=== PATIENT | female | born 1965 | race Caucasian/White ===

== ENCOUNTER 2020-06-14 09:30 | Outpatient (REF) | payer OTHER, SELFPAY | END 2020-06-14 09:31 | disposition home or self-care (01) | LOC: HO.LNP 09:30 | PROVIDERS: Visit Provider Physician Assistant | DX: J01.90 Acute sinusitis, unspecified (principal); Z20.822 Contact with and (suspected) exposure to COVID-19 | CPT/HCPCS: U0003 ==

== ENCOUNTER 2020-11-21 12:10 | Outpatient (REF) | payer OTHER, SELFPAY ==
--- NOTE | ~2020-11-21 | XR_ITS ---
EXAMINATION: XR CHEST CLINICAL INFORMATION: Chest pain COMPARISON: Previous chest x-ray June 2017 TECHNIQUE: 2 views of the chest were obtained. FINDINGS: No significant abnormality is noted involving the heart, lungs, mediastinum, bony thorax or soft tissues. XR/XR chest 2V IMPRESSION: Unremarkable examination.
[2020-11-21 13:55] LABS: MANUAL DIFF FLAG NO
[2020-11-21 13:59] LABS: Basophils Percent Auto 0.6 % (0-2); Eosinophils Absolute Auto 0.1 X10*3/uL (0.0-0.4); Eosinophils Percent Auto 2.2 % (0-4); Hematocrit 44.1 % (37-47); Imm Gran Abs Auto 0.01 X10*3/uL (0.00-0.03); Imm Gran Pct Auto 0.2 % (0.0-0.4); Lymphocytes Absolute Auto 1.9 X10*3/uL (1.2-4.9); Lymphocytes Percent Auto 40.2 % (20-40); Mean Corpuscular Hemoglobin 30.2 pg (27.0-33.0); Mean Corpuscular Volume 88.9 fL (80-98); Mean Platelet Volume 10.3 fL (9.4-12.3); Monocytes Absolute Auto 0.4 X10*3/uL (0.1-1.2); Monocytes Percent Auto 9.3 % (2-11); Neutrophils Absolute Auto 2.2 X10*3/uL (2.0-8.3); Neutrophils Percent Auto 47.5 % (45-73); Platelet Count 215 X10*3/uL (160-400); Red Blood Count 4.96 X10*6/uL (4.20-5.50); Red Cell Distribution Width 12.7 % (11.0-16.0); White Blood Count 4.6 X10*3/uL (4.8-10.8)
[2020-11-21 14:16] LABS: D Dimer < 200 NG/ML
[2020-11-21 14:24] LABS: Anion Gap 12 (12-20); Blood Urea Nitrogen 14 mg/dL (9-16); Calcium 9.6 mg/dL (8.4-10.2); Carbon Dioxide 28 mmol/L (22-29); Chloride 107 mmol/L (96-108); Estimated Glomerular Filt Rate > 60; Glucose Random 106 mg/dL (60-115); Potassium 4.4 mmol/L (3.3-5.1); Sodium 143 mmol/L (135-145)
[2020-11-21 14:26] LABS: Troponin-I High Sensitivity < 3.5 ng/L (<3.5-17.0)
== END 2020-11-21 12:11 | disposition home or self-care (01) ==
LOC: HO.HMGCX 12:10
PROVIDERS: PCP Internal Medicine; Visit Provider Nurse Practitioner Family
DX: R07.9 Chest pain, unspecified (principal)
CPT/HCPCS: 36415; 71046; 80048; 84484; 85025; 85379

== ENCOUNTER 2020-12-19 08:06 | Outpatient (REF) | payer OTHER, SELFPAY ==
[2020-12-19 11:53] LABS: Cholesterol 230 mg/dL; Glucose Fasting 94 mg/dL (60-99); HDL Cholesterol 59 mg/dL; LDL Cholesterol Calculated 148 mg/dl; Triglycerides 115 mg/dL
[2020-12-19 11:55] LABS: TSH reflex Free T4 3.06 uIU/mL (0.32-4.0)
[2020-12-24 13:15] LABS: Vitamin D 25-OH, D2 <4 ng/mL; Vitamin D 25-OH, D3 34 ng/mL; Vitamin D 25-OH, Total 34 ng/mL (30-100)
== END 2020-12-19 08:07 | disposition home or self-care (01) ==
LOC: HO.HMGCLDS 08:06
PROVIDERS: PCP Internal Medicine; Visit Provider Internal Medicine
DX: E66.09 Other obesity due to excess calories (principal); F41.1 Generalized anxiety disorder; M54.12 Radiculopathy, cervical region
CPT/HCPCS: 36415; 80061; 82306; 82947; 84443

== ENCOUNTER 2021-05-06 18:41 | Outpatient (REF) | payer OTHER, SELFPAY ==
[2021-05-06 19:26] LABS: Influenza A PCR NEGATIVE (Negative); Influenza B PCR NEGATIVE (Negative); Resp Syncy Virus RNA Qual PCR NEGATIVE (Negative); SARS COV2 PCR INHOUSE NEGATIVE (Negative)
== END 2021-05-06 18:42 | disposition home or self-care (01) ==
LOC: HO.LNP 18:41
PROVIDERS: Visit Provider Physician Assistant
DX: J32.9 Chronic sinusitis, unspecified (principal); Z20.822 Contact with and (suspected) exposure to COVID-19
CPT/HCPCS: 0241U

== ENCOUNTER 2021-06-21 12:00 | Outpatient (REF) | payer OTHER, SELFPAY ==
[2021-06-21 12:48] LABS: Binax Now Covid-19 Ag Negative (Negative)
[2021-06-21 12:49] LABS: Binax Internal Control QC Valid
== END 2021-06-21 12:01 | disposition home or self-care (01) ==
LOC: HO.HMGCLDS 12:00
PROVIDERS: Visit Provider Nurse Practitioner Family
DX: Z13.89 Encounter for screening for other disorder (principal)

== ENCOUNTER 2023-09-10 15:17 | Outpatient (AMB) | payer OTHER, SELFPAY ==
[2023-09-10 15:22] VITALS: BP 138/80; PULSE 67; TEMP 36.6; O2SAT 96; BMI 30.8
--- NOTE | 2023-09-10 15:22 | AM.OFFWIN_ITS ---
Intake Vital Signs 09/10/23 15:22 Height 5 ft 6 in Weight 191 lb BMI 30.8 BP 138/80 Blood Pressure Location Lt brachial Position Sitting Pulse 67 Pulse Source Pulse Oximeter Temp 98 F Temp Source Oral Pulse Oximetry (%) 96 Oxygen Delivery Method Room Air Intake Visit Reasons: EP Sore throat, headache, cough Intake Note: Pt is here today for sore throat, headache and cough. Pt states symptoms started Thursday also mentioned chest feels heavy. Patient Tobacco Use Status: Never used Tobacco Allergies No Known Allergies [No Known Allergies*] Allergy (Verified 09/10/23 15:23) Do you need a note to return to daycare/school/sports/work: No HPI HPI Comments History of Present Illness Details The patient presents to urgent care for evaluation of cold symptoms. She has nasal congestion headache mild body aches and dry cough. She has some pain with respiration and coughing. Patient also reports tinnitus and that has been going on for an extended period of time. Patient denies fever chills nausea vomiting diarrhea [facility] Medical History (Updated 09/28/21 @ 14:48 by Jarod Kirk PA-C) Exposure to COVID-19 virus Family History Other Substance use disorder Social History Housing: House Patient Tobacco Use Status: Never used Tobacco Second Hand Smoke Exposure: Yes (as a child) Current occupational status: employed Review of Systems Card Denies rapid heart rate GI Denies dyspepsia and Denies heartburn Musc Denies arthralgias and Denies muscle cramps Neuro Denies focal weakness and Denies Other visual disturbances Physical Exam Vital Signs: Last Vital Signs Temp 98 F 09/10/23 15:22 Pulse 67 09/10/23 15:22 BP 138/80 09/10/23 15:22 Pulse Ox 96 09/10/23 15:22 Oxygen Delivery Method Room Air 09/10/23 15:22 BMI result Body Mass Index 30.8 Const General: healthy appearing and no acute distress HEENT Mouth: Normal oral and palatal mucosa present Resp Effort & Inspection: normal respiratory effort and able to speak in complete sentences Auscultation: clear to auscultation bilaterally Cardio Rate: regular rate Rhythm: regular rhythm Results AMB Rapid Strep AMB Rapid Strep Negative Last Edit by Ed Cameron MA on 09/10/23 15:32 Results Reviewed Results Reviewed: Laboratory Last Values Strep Scn Rapid Clinic Negative 09/10/23 15:31 Assessment & Plan Assessment & Plan (1) URI (upper respiratory infection): Code(s): J06.9 - Acute upper respiratory infection, unspecified (2) Tinnitus: Code(s): H93.19 - Tinnitus, unspecified ear Plan URi-symptoms consistent with viral. TMs clear, no cerumen impaction. No identifiable cause for tinnitus seen today. Patient was referred to ENT for this reason. Recommend OTC uri medications in the meantime Coding Level of Care Code Est Pt Level 3 (50503) Diagnoses URI (upper respiratory infection) J06.9 Tinnitus H93.19
== END 2023-09-10 15:50 | disposition home or self-care (01) ==
PROVIDERS: PCP Internal Medicine; Visit Provider Emergency Medicine
DX: J06.9 Acute upper respiratory infection, unspecified (principal); H93.19 Tinnitus, unspecified ear
CPT/HCPCS: 99213

== ENCOUNTER 2024-01-07 12:59 | Outpatient (AMB) | payer OTHER, SELFPAY ==
--- NOTE | 2024-01-07 13:01 | MHC.OFFWIV ---
Intake Vital Signs 01/07/24 13:08 01/07/24 13:14 Height 5 ft 6 in Weight 187 lb BMI 30.2 BP 208/118 H 208/106 H Blood Pressure Location Rt brachial Lt brachial Position Sitting Sitting Pulse 63 Pulse Source Pulse Oximeter Temp 97.3 F Temp Source Oral Pulse Oximetry (%) 98 Oxygen Delivery Method Room Air Intake Visit Reasons: Ep headache, cough, congestion Intake Note: pt c/ Patient Tobacco Use Status: Never used Tobacco Allergies No Known Allergies [No Known Allergies*] Allergy (Verified 09/10/23 15:23) HPI HPI Comments History of Present Illness Details 58 y/o female patient who presents to the walk in clinic with c/o URI symptoms for few days now. Reports headaches, and sinus headaches. She used to have elevated BP readings in the past, but did not require medications then. She has been taking NSAIDs and Nyquil frequently for Cold symptoms. Denies CP, SOB, Palpitations or vision changes. Denies fevers, chills, nausea or vomiting. [facility] Medical History (Updated 09/28/21 @ 14:48 by Jarod Kirk PA-C) Exposure to COVID-19 virus Family History Other Substance use disorder Social History Housing: House Patient Tobacco Use Status: Never used Tobacco Second Hand Smoke Exposure: Yes (as a child) Current occupational status: employed Review of Systems Const All systems reviewed & are unremarkable except as noted in HPI and below Physical Exam Vital Signs: Last Vital Signs Temp 97.3 F 01/07/24 13:08 Pulse 63 01/07/24 13:08 BP 208/106 H 01/07/24 13:14 Pulse Ox 98 01/07/24 13:08 Oxygen Delivery Method Room Air 01/07/24 13:08 BMI result Body Mass Index 30.2 Const General: cooperative, no acute distress and lethargic Orientation/consciousness: patient oriented x3 and lethargic HEENT Head: Yes normocephalic Ears: external ears normal and TM abnormal bulging bilateral and with fluid behind the TM bilateral; not erythematous General nose exam: Normal external nose present and Abnormal mucous membranes and turbinates present erythematous Face and sinus: Yes sinuses nontender Mouth: moist mucous membranes Throat: Yes posterior oropharynx normal Resp Effort & Inspection: normal respiratory effort and able to speak in complete sentences Auscultation: clear to auscultation bilaterally, no crackles, no rales, no rhonchi and no wheezes Cardio Heart sounds: S1 normal heart sound present and S2 normal heart sound present Neuro General: patient oriented x3, gait normal and moves all extremities Psych Speech and movement: Normal speech and movement present Assessment & Plan Assessment & Plan (1) URI (upper respiratory infection): Code(s): J06.9 - Acute upper respiratory infection, unspecified Qualifiers: URI type: unspecified viral URI Qualified Code(s): J06.9 - Acute upper respiratory infection, unspecified Plan: Probably Viral Advised to go to Emergency room for further evaluation. (2) Elevated blood pressure reading: Code(s): R03.0 - Elevated blood-pressure reading, without diagnosis of hypertension Plan: Ordered ECG, Normal Sinus ?Right Bundle Branch block Advised to go to ED for further evaluation. Coding Level of Care Code Est Pt Level 3 (12230) Diagnoses Viral upper respiratory tract infection J06.9 URI type: unspecified viral URI Elevated blood pressure reading R03.0 Time Spent (min) 15
[2024-01-07 13:08] VITALS: BP 208/118; PULSE 63; TEMP 36.3; O2SAT 98; BMI 30.2
[2024-01-07 13:14] VITALS: BP 208/106
== END 2024-01-07 14:01 | disposition home or self-care (01) ==
PROVIDERS: PCP Internal Medicine; Visit Provider Nurse Practitioner Family
DX: J06.9 Acute upper respiratory infection, unspecified (principal); R03.0 Elevated blood-pressure reading, without diagnosis of hypertension
CPT/HCPCS: 99213

== ENCOUNTER 2024-01-07 13:52 | Emergency (ER) | payer OTHER, SELFPAY ==
--- NOTE | ~2024-01-07 | XR_ITS ---
EXAMINATION: XR CHEST CLINICAL INFORMATION: Cough and congestion COMPARISON: Chest x-ray November 21, 2020 TECHNIQUE: PA and lateral views of the chest were obtained. FINDINGS: The cardiac and mediastinal contours is normal. There is no pulmonary vascular congestion. There is no acute airspace disease or pleural effusion. Orthopedic plate and screw in lower cervical spine XR/XR chest 2V IMPRESSION: Normal chest. Electronically signed by: Rell Cruz MD 01/07/2024 03:28 PM EDT
--- NOTE | ~2024-01-07 | CT_ITS ---
EXAMINATION: CT HEAD WITHOUT CONTRAST CLINICAL INFORMATION: Headache and elevated blood pressure. COMPARISON: None. TECHNIQUE: Contiguous axial imaging was performed from the skullbase to vertex without intravenous administration of contrast. This CT examination was performed using dose optimization techniques as appropriate, variously including the following: *Automated exposure control *Adjustment of mA and/or kV according to patient size (this includes techniques or standardized protocols for targeted exams where dose is matched to indication/reason for exam; i.e. extremities or head) *Use of iterative reconstruction technique DLP: 612 mGy-cm. FINDINGS: There is no evidence of acute intracranial hemorrhage or territorial infarction. No abnormal mass effect or midline shift is seen. [place] to white matter differentiation is well preserved. No extra-axial fluid collections are identified. The ventricles are normal in size. There is no abnormal attenuation within the brain parenchyma. The osseous structures and soft tissues are normal. The mastoid air cells and visualized portions of the paranasal sinuses are well aerated. CT/CT head/brain wo IV con IMPRESSION: No acute intracranial pathology. Electronically signed by: Sherif Palomares MD 01/07/2024 04:51 PM EDT
[2024-01-07 14:24] VITALS: BP 220/85; PULSE 66; RESP 18; TEMP 36.7; O2SAT 97; BMI 30.3
--- NOTE | 2024-01-07 14:28 | ECG_ITS ---
Test Reason : HBP Blood Pressure : / mmHG Vent. Rate : 056 BPM Atrial Rate : 056 BPM P-R Int : 156 ms QRS Dur : 090 ms QT Int : 420 ms P-R-T Axes : 048 015 009 degrees QTc Int : 405 ms Sinus bradycardia Anterior infarct , age undetermined Abnormal ECG No previous ECGs available Referred By: Kristin Finnegan Electronically Signed By:GARY BROWN
--- NOTE | 2024-01-07 14:29 | ED.GENADULT ---
HPI - General Adult General Chief complaint: Upper Respiratory Symptoms Stated complaint: high bp Time Seen by Provider: 01/07/24 15:19 History of Present Illness ED Provider: Pollo KEVIN narrative: The patient is a 58-year-old woman who is generally in fairly good health. She does not have a history of hypertension. The patient says that approximately 2-1/2 weeks ago she thought she had a respiratory infection or something like the flu that she managed at home. Her symptoms have been quite persistent however and last week she developed a gradual onset headache that has become quite persistent as well and quite annoying. She has continued to have a slight dry cough and also a sore throat. No fevers. She was frustrated at the duration of her symptoms and went to an urgent care center today. She thoought perhaps she might have strep throat. At the urgent care center she had a blood pressure of about 220/100. The urgent care center was concerned about the combination of a complaint of headache and the hypertension and they recommended she come to the emergency department. No definite history of fevers. No vomiting. The patient has a history of headaches and has seen an ENT specialist about her headaches. She feels that this headache is not entirely identical to her previous headaches. The patient has never been a smoker. Neither of her parents had heart disease. She has 2 older brothers. The older of these 2 has not had any heart disease. The younger of the 2 older brothers has had 2 heart attacks. Related Data Home Medications ?Medication ?Instructions ?Recorded ?Confirmed No Known Home Meds 09/28/21 09/28/21 Allergies Allergy/AdvReac Type Severity Reaction Status Date / Time No Known Allergies Allergy Verified 01/07/24 14:26 [No Known Allergies*] Review of Systems Review of Systems: Yes all other systems are reviewed and are negative [facility] Past Medical History Medical History (Updated 01/07/24 @ 17:27 by Trent Abad MD) Exposure to COVID-19 virus Family History Family History Other Substance use disorder Social History Social History Housing: House Patient Tobacco Use Status: Never used Tobacco Second Hand Smoke Exposure: Yes (as a child) Advance Directives: Yes Advance Directives on File: Yes Advance Directives Date on File: 01/07/24 Current occupational status: employed Physical Exam ED Vital Signs: Vital Signs - 24 hr 01/07/24 14:24 Temperature 98.1 F Pulse Rate 66 Respiratory Rate 18 Blood Pressure 220/85 H Pulse Oximetry 97 Oxygen Delivery Method Room Air BMI result Body Mass Index 30.3 Const Other: The patient is awake, alert, pleasant, cooperative. She does not appear in acute distress. She looks as if she is ordinarily healthy. HENMT Other: Face is symmetrical. Mucous membranes moist. Slight erythema of the posterior pharynx. Eyes Other: Pupils are round equal, conjunctivae are clear, extraocular movements intact. Neck Other: No cervical adenopathy. Moving her neck easily. Neck: Yes no meningeal signs and Yes supple Resp Effort & Inspection: normal respiratory effort Auscultation: clear to auscultation bilaterally Cardio Rate: regular rate Rhythm: regular rhythm Heart sounds: S1 normal heart sound present and S2 normal heart sound present GI Other: Abdomen is soft and nontender Skin Other: Skin is dry and unremarkable Neuro Other: The patient is awake and alert, pleasant and cooperative. She has a nontoxic demeanor. She is oriented and appropriate. Cranial nerves 2-12 are intact. She moves her extremities normally and appropriately seems grossly neurologically intact General: no meningeal signs Extrem Other: No calf swelling or tenderness. No peripheral edema. No asymmetry. Course Course Course Narrative: This is a Rapid Medical Examination (RME) performed by Zack Finnegan PA-C in triage. Full HPI, ROS, assessment and treatment plan per primary provider in the Main ED. 58 yo female here from for eval of elevated BP. Reports recent headache, dry cough, congestion and fatigue. When to urgent care for evaluation and was noted to have BP in the 200s over 80s with abnormal EKG. Sent here for further evaluation. Admits her granddaughter was recently ill. Denies chest pain, shortness of breath, vision changes, dizziness. + well-appearing. Exam nonfocal. PERRLA. No noted papilledema. rrr. lungs clear. Plan: labs, ekg, ct head, viral serology Medications Administered Discontinued Medications Generic Name Dose Route Start Last Admin Trade Name Freq PRN Reason Stop Dose Admin Diphenhydramine HCl 25 mg 01/07/24 15:50 01/07/24 16:13 Diphenhydramine Hcl 50 Mg/Ml Vial IVPUSH 01/07/24 15:51 25 mg ONCE ONE Administration Sodium Chloride 1,000 mls @ 999 mls/hr 01/07/24 16:00 01/07/24 16:08 Ns IV 01/07/24 17:00 999 mls/hr .Q1H1M DAVIS Administration Ketorolac Tromethamine 10 mg 01/07/24 15:50 01/07/24 16:13 Ketorolac Tromethamine 15 Mg/Ml Vial IVPUSH 01/07/24 15:51 10 mg ONCE ONE Administration Metoclopramide HCl 10 mg 01/07/24 15:50 01/07/24 16:13 Metoclopramide Hcl 10 Mg/2 Ml Vial IVPUSH 01/07/24 15:51 10 mg ONCE ONE Administration Medical Decision Making Medical Decision Making [facility] Narrative: The patient is a 58-year-old woman who is generally quite healthy. She is a nonsmoker. She has been feeling unwell for about 2-1/2 weeks. Her symptoms have included a headache that has developed over the last week. It was not a thunderclap headache. She has not had fevers. She has a supple neck. She went to an urgent care today to make sure she did not have strep throat. However she was found to have significantly elevated blood pressure readings and was sent to the emergency room. Here her blood pressure was fairly high at 220/85. She has a nontoxic appearance and a supple neck. Investigations were ordered at triage that included a head CT. This is negative. Troponin is normal. EKG shows no acute ischemic changes. She has no chest pain. No other anginal symptoms. CBC shows a normal white count and differential. A viral swab is negative and a rapid strep is negative. The patient was treated for her headache with ketorolac, ibuprofen, and diphenhydramine and IV fluids. Her headache improved. Her blood pressure improved but did not entirely normalize. Although her blood pressure is still somewhat high I think she is appropriate for discharge to follow up with the regular doctor for further evaluation of her blood pressure. Lab Data 01/07/24 14:44 01/07/24 14:44 Labs: Lab Results 01/07/24 01/07/24 Range/Units 14:44 17:06 WBC 6.1 (4.8-10.8) X10*3/uL RBC 5.06 (4.20-5.50) X10*6/uL Hgb 16.1 H (12.0-16.0) g/dl Hct 44.8 (37.0-47.0) % MCV 88.5 (80.0-98.0) fL MCH 31.8 (27.0-33.0) pg MCHC 35.9 H (31.0-35.0) g/dl RDW 13.2 (11.0-16.0) % Plt Count 172 (160-400) X10*3/uL MPV 10.0 (9.4-12.3) fL Immature Gran % (Auto) 0.3 (0.0-0.4) % Neut % (Auto) 51.1 (45-73) % Lymph % (Auto) 37.7 (20-40) % [place] % (Auto) 7.7 (2-11) % Eos % (Auto) 2.4 (0-4) % Baso % (Auto) 0.8 (0-2) % Lymph # (Auto) 2.3 (1.2-4.9) X10*3/uL [place] # (Auto) 0.5 (0.1-1.2) X10*3/uL Eos # (Auto) 0.2 (0.0-0.4) X10*3/uL Baso # (Auto) 0.1 (0.0-0.2) X10*3/uL Abs Immat Gran (auto) 0.02 (0.00-0.03) X10*3/uL Absolute Neuts (auto) 3.1 (2.0-8.3) x10*3/uL Absolute Nucleated RBC 0.000 (0.0-0.012) X10*3/uL Nucleated RBC % (auto) 0.0 (0.0-0.2) /100WBC Sodium 142 (135-145) mmol/L Potassium 3.8 (3.3-5.1) mmol/L Chloride 104 (96-108) mmol/L Carbon Dioxide 28 (22-29) mmol/L Anion Gap 14 (12-20) BUN 13 (9-16) mg/dL Creatinine 0.88 (0.5-1.4) mg/dL Estim Creat Clear Calc 77.5 Estimated GFR > 60 Random Glucose 92 (60-115) mg/dL Calcium 10.0 (8.4-10.2) mg/dL Magnesium 2.3 (1.6-2.6) mg/dL Total Bilirubin 0.6 (0.0-1.0) mg/dL AST 45 H (5-31) U/L ALT 53 H (0-31) U/L Alkaline Phosphatase 86 (39-117) U/L Troponin I High Sens 3.4 (<3.5-17.0) ng/L Total Protein 7.8 (6.5-8.0) g/dL Albumin 4.2 (3.5-5.0) g/dL Influenza Type A (PCR) NEGATIVE (Negative) Influenza Type B (PCR) NEGATIVE (Negative) RSV RNA Qual (PCR) NEGATIVE (Negative) SARS-CoV-2 RNA (RT-PCR) NEGATIVE (Negative) S. pyogenes GrpA KLAUS Negative (Negative) Independent Interpretation I performed an independent interpretation of an: EKG Interpretation: EKG at 14:35 shows sinus bradycardia at 56 beats per minute. No acute ischemic changes. Discharge Plan Discharge Clinical Impression: Headache, Elevated blood pressure reading Patient Disposition: Home, Self-Care Additional Instructions: Your testing in the emergency room today is not revealing any dangerous process. Please rest and take it easy when you get home tonight. Please try to increase your fluid intake generally. You may use ibuprofen and/or acetaminophen as needed for ongoing headaches. Please call your regular doctor's office in the morning to set up a prompt follow up appointment for recheck of your blood pressure. Return to the emergency room if you feel significantly worse. Prescriptions: No Action No Known Home Meds Referrals: Bert Hernandez MD [Primary Care Provider] - (Headache, elevated blood pressures) Print Language: Mongolian
[2024-01-07 14:49] LABS: MANUAL DIFF FLAG NO
[2024-01-07 14:51] LABS: Basophils Absolute Auto 0.1 X10*3/uL (0.0-0.2); Basophils Percent Auto 0.8 % (0-2); Eosinophils Absolute Auto 0.2 X10*3/uL (0.0-0.4); Eosinophils Percent Auto 2.4 % (0-4); Hematocrit 44.8 % (37.0-47.0); Hemoglobin 16.1 g/dl (12.0-16.0); Imm Gran Abs Auto 0.02 X10*3/uL (0.00-0.03); Imm Gran Pct Auto 0.3 % (0.0-0.4); Lymphocytes Absolute Auto 2.3 X10*3/uL (1.2-4.9); Lymphocytes Percent Auto 37.7 % (20-40); Mean Corpuscular HGB Conc 35.9 g/dl (31.0-35.0); Mean Corpuscular Hemoglobin 31.8 pg (27.0-33.0); Mean Corpuscular Volume 88.5 fL (80.0-98.0); Monocytes Absolute Auto 0.5 X10*3/uL (0.1-1.2); Monocytes Percent Auto 7.7 % (2-11); Neutrophils Absolute Auto 3.1 x10*3/uL (2.0-8.3); Neutrophils Percent Auto 51.1 % (45-73); Platelet Count 172 X10*3/uL (160-400); Red Blood Count 5.06 X10*6/uL (4.20-5.50); Red Cell Distribution Width 13.2 % (11.0-16.0); White Blood Count 6.1 X10*3/uL (4.8-10.8)
[2024-01-07 15:04] LABS: Alanine Aminotransferase 53 U/L (0-31); Albumin Level 4.2 g/dL (3.5-5.0); Alkaline Phosphatase 86 U/L (39-117); Anion Gap 14 (12-20); Aspartate Amino Transferase 45 U/L (5-31); Bilirubin Total 0.6 mg/dL (0.0-1.0); Blood Urea Nitrogen 13 mg/dL (9-16); Carbon Dioxide 28 mmol/L (22-29); Chloride 104 mmol/L (96-108); Creatinine Clr Calc Pharmacy 77.5; Estimated Glomerular Filt Rate > 60; Glucose Random 92 mg/dL (60-115); Magnesium 2.3 mg/dL (1.6-2.6); Potassium 3.8 mmol/L (3.3-5.1); Sodium 142 mmol/L (135-145); Total Protein 7.8 g/dL (6.5-8.0)
[2024-01-07 15:11] LABS: Troponin-I High Sensitivity 3.4 ng/L (<3.5-17.0)
[2024-01-07 15:30] LABS: Influenza A PCR NEGATIVE (Negative); Influenza B PCR NEGATIVE (Negative); Resp Syncy Virus RNA Qual PCR NEGATIVE (Negative); SARS COV2 PCR INHOUSE NEGATIVE (Negative)
[2024-01-07] MEDS: 0.9 % Sodium Chloride 1,000 ML 999 ML IV (16:08)
[2024-01-07] MEDS: diphenhydrAMINE HCL 50 MG/ML VIAL 25 MG IVPUSH (16:13)
[2024-01-07] MEDS: Metoclopramide HCl 10 MG/2 ML VIAL IVPUSH (16:13)
[2024-01-07] MEDS: Ketorolac Tromethamine 15 MG/ML VIAL 10 MG IVPUSH (16:13)
[2024-01-07 17:17] LABS: IDNOW Serial# 08D9AD1C; Strep A Nucleic Acid Negative (Negative)
[2024-01-07 17:30] VITALS: O2SAT 99
[2024-01-07 17:38] VITALS: BP 164/80; PULSE 64; RESP 16; O2SAT 99
[2024-01-07 17:55] VITALS: BP 164/80; PULSE 64; RESP 16; TEMP 36.7; O2SAT 99
== END 2024-01-07 17:56 | disposition home or self-care (01) ==
PROVIDERS: Physician Assistant Medical; Emergency Provider Emergency Medicine; PCP Internal Medicine
DX: R51.9 Headache, unspecified (principal); R03.0 Elevated blood-pressure reading, without diagnosis of hypertension; Z03.818 Encounter for observation for suspected exposure to other biological agents ruled out; R05.9 Cough, unspecified; J02.9 Acute pharyngitis, unspecified
CPT/HCPCS: 0241U; 36415; 70450; 71046; 80053; 83735; 84484; 85025; 87651; 93005; 96374; 96375; 99284; 99285; J1200; J1885; J2765

== ENCOUNTER 2024-01-22 14:27 | Outpatient (AMB) | payer OTHER, SELFPAY ==
[2024-01-22 14:29] VITALS: BP 146/78; PULSE 66; O2SAT 98; BMI 30.2
--- NOTE | 2024-01-22 14:29 | MHC.PC.OV ---
Vital Signs 01/22/24 14:29 Height 5 ft 6 in Weight 187 lb 6 oz BMI 30.2 BP 146/78 H Blood Pressure Location Rt brachial Position Sitting Pulse 66 Pulse Source Pulse Oximeter Pulse Oximetry (%) 98 Oxygen Delivery Method Room Air Intake Visit Reasons: Annual-PE Allergies No Known Allergies [No Known Allergies*] Allergy (Verified 01/22/24 14:30) Medication List - Last Reconciled 01/22/24 by Bert Hernandez MD No Known Home Meds Tobacco use date assessed: 01/22/24 Dental Screening Dental Screen Date: 01/22/24 Did you have a dental visit in the last 12 months?: Yes Did you have a dental problem in the last 6 months where you did not have access to dental care?: No Was dental information given to patient?: Patient has dentist HPI Annual-PE HPI Details Patient is a 58-year-old female came in today after almost 3 years She was in emergency room in December because of high blood pressure and headaches Had workup done and then was discharged Her blood pressure is 146/78 Patient continued to have headaches every day and ringing in the ears I am starting her on atenolol 25 mg once a day She was advised to get blood pressure monitor and start logging the blood pressure from home Lab order placed to be done fasting She will call her OBGYN for Pap smear and mammogram order and breast exam is through them as per patient No syncope was at age 51 and it was normal as per patient History of herniated disc in the neck with surgery 15 years ago, now having numbness tingling and weakness in her left hand I am ordering EMG nerve conduction study for her She will return in 3 weeks for follow-up appointment [facility] Medical History Exposure to COVID-19 virus Family History Other Substance use disorder Social History Housing: House Patient Tobacco Use Status: Never used Tobacco e-Cigarette/Vaping Use: Never Used Second Hand Smoke Exposure: Yes (as a child) Advance Directives Date on File: 01/07/24 service: No Current occupational status: employed Cognitive needs: No Hearing needs: No Vision needs: No Questionnaire PHQ-9 Over the last 2 weeks, how often have you been bothered by any of the following problems? 1. Little interest or pleasure in doing things: not at all 2. Feeling down, depressed, or hopeless: not at all 3. Trouble falling or staying asleep, or sleeping too much: not at all 4. Feeling tired or having little energy: not at all 5. Poor appetite or overeating: not at all 6. Feeling bad about yourself - or that you are a failure or have let yourself or your family down: not at all 7. Trouble concentrating on things, such as reading the newspaper or watching television: not at all 8. Moving or speaking so slowly that other people could have noticed. Or the opposite - being so fidgety or restless that you have been moving around a lot more than usual: not at all 9. Thoughts that you would be better off or of hurting yourself in some way: not at all Total score: 0 Depression Screening Interpretation: Negative Depression Screening Done: Yes [id number] - PHQ-9 Billing: Yes Source: Developed by Drs. Jass Arango, Natalya Barone, Oswaldo Augustin and colleagues, with an educational lorena from [employer]. Thrive Questionnaire I am a: Patient What is your living situation today?: I have a steady place to live Within the past 12 months, did the food you bought not last and you didn't have the money to get more?: Never true Within the past 12 months, did you worry whether your food would run out before you got money to buy more?: Never true Do you have trouble paying for medicines?: No Do you have trouble getting transportation to medical appointments?: No Do you have trouble paying your heating and electricity bill?: No Do you have trouble taking care of your child, family member or friend?: No Do you have trouble with day-to-day activities such as bathing, preparing meals, shopping, managing finances, etc.?: No Are you currently unemployed and looking for a job?: No Are you interested in more education?: No Please select the resources that you would like help with: None Currently or been in a relationship where the following occur: No concerns reported THRIVE Score: 0 AUDIT C Alcohol Use Questionnaire (AUDIT-C) 1. How often do you have a drink containing alcohol?: Monthly or less 2. How many drinks containing alcohol do you have on a typical day when you are drinking?: 1 or 2 3. How often do you have six or more drinks on one occasion?: Never Total Score: 1 LENA-7 AMB Questionnaire LENA-7 Feeling nervous, anxious, or on edge: 0 = Not at all Not being able to stop or control worryin = Not at all Worrying too much about different things: 0 = Not at all Trouble relaxin = Not at all Being so restless that it is hard to sit still: 0 = Not at all Becoming easily annoyed or irritable: 0 = Not at all Feeling afraid as if something awful might happen: 0 = Not at all Total LENA-7 score (0-4 normal; 5-9 mild; 10-14 moderate; 15-21 severe): 0 Source: Developed by Drs. Jass Arango, Natalya Barone, Oswaldo Augustin and colleagues, with an educational lorena from [employer]. Review of Systems Const Denies chills and Denies fever(s) Eyes Denies blurry vision ENT Denies nasal discharge, Denies nasal obstruction, Denies odynophagia and Denies sinus pain Card Denies chest pain at rest and Denies chest pain with activity Resp Denies cough and Denies hemoptysis GI Denies diarrhea, Denies odynophagia, Denies vomiting and Denies hematemesis Reports as per HPI Musc Denies abnormal gait Skin/Breast Reports as per HPI Neuro Denies Neuro-related abnormal movements, Denies Abnormal speech present and Denies abnormal gait Psych Denies mood swings and Denies paranoia Endo Reports as per HPI Gume/Lymph Reports as per HPI Aller/Immun Reports as per HPI Physical exam (Primary Care) Vital Signs: Last Vital Signs Pulse 66 01/22/24 14:29 BP 146/78 H 01/22/24 14:29 Pulse Ox 98 01/22/24 14:29 Oxygen Delivery Method Room Air 01/22/24 14:29 BMI result Body Mass Index 30.2 Tobacco/Smoking Status: Tobacco use Status Tobacco use date assessed 01/22/24 01/22/24 14:36 Patient Tobacco Use Status Never used Tobacco 01/22/24 14:32 e-Cigarette/Vaping Use Never Used 01/22/24 14:36 PHQ-9: PHQ-9 Score PHQ-9: Total score 0 01/22/24 14:32 Depression Screening Interpretation: Negative Currently or been in a relationship where the following occur: No concerns reported Const General: cooperative, comfortable and no acute distress Orientation/consciousness: patient oriented x3 HENMT Head: Yes normocephalic and Yes atraumatic Eyes General: appearance normal, both eyes and all related structures Pupils: Equal, round and reactive pupils present EOM: EOMs intact bilaterally Neck Neck: Yes supple and No lymphadenopathy Thyroid: Thyroid normal Lymphatic: no lymphadenopathy noted Resp Effort & Inspection: normal respiratory effort and able to speak in complete sentences Auscultation: clear to auscultation bilaterally Cardio Heart sounds: S1 normal heart sound present and S2 normal heart sound present GI Palpation (GI): Soft to palpation and nontender Auscultation: normal bowel sounds General: Yes no CVA tenderness Back/Spine/Pelvis Back: no CVA tenderness Skin General skin exam: elasticity normal and turgor normal Neuro General: patient oriented x3 and gait normal Cranial nerves: Yes Equal, round and reactive pupils present Speech: No Abnormal speech present Coordination: tandem gait normal and Romberg test negative Extrem General: Yes normal exam except as noted and No edema Assessment and Plan Assessment & Plan (1) Encounter for general adult medical examination with abnormal findings: Code(s): Z00.01 - Encounter for general adult medical examination with abnormal findings (2) Hypertension, essential: Code(s): I10 - Essential (primary) hypertension (3) Obesity due to excess calories: Code(s): E66.09 - Other obesity due to excess calories (4) LFT elevation: Code(s): R79.89 - Other specified abnormal findings of blood chemistry (5) Paresthesia of left upper extremity: Code(s): R20.2 - Paresthesia of skin (6) History of herniated intervertebral disc: Code(s): Z87.39 - Personal history of other diseases of the musculoskeletal system and connective tissue (7) Chronic headaches: Code(s): R51.9 - Headache, unspecified; G89.29 - Other chronic pain Plan Patient is a 58-year-old female came in today after almost 3 years She was in emergency room in December because of high blood pressure and headaches Had workup done and then was discharged Her blood pressure is 146/78 Patient continued to have headaches every day and ringing in the ears I am starting her on atenolol 25 mg once a day She was advised to get blood pressure monitor and start logging the blood pressure from home Lab order placed to be done fasting She will call her OBGYN for Pap smear and mammogram order and breast exam is through them as per patient No syncope was at age 51 and it was normal as per patient History of herniated disc in the neck with surgery 15 years ago, now having numbness tingling and weakness in her left hand I am ordering EMG nerve conduction study for her She will return in 3 weeks for follow-up appointment Orders: Orders NE nerve conduction velocity Today R20.2 - Paresthesia of skin, Z87.39 - Personal history of other diseases of the musculoskeletal system and connective tissue NE electromyogram (EMG) Today R20.2 - Paresthesia of skin, Z87.39 - Personal history of other diseases of the musculoskeletal system and connective tissue Complete Blood Count Auto Diff Today E66.09 - Other obesity due to excess calories, G89.29 - Other chronic pain, I10 - Essential (primary) hypertension, R20.2 - Paresthesia of skin, R51.9 - Headache, unspecified, R79.89 - Other specified abnormal findings of blood chemistry, Z00.01 - Encounter for general adult medical examination with abnormal findings, Z87.39 - Personal history of other diseases of the musculoskeletal system and connective tissue Lipid Panel Today E66.09 - Other obesity due to excess calories, G89.29 - Other chronic pain, I10 - Essential (primary) hypertension, R20.2 - Paresthesia of skin, R51.9 - Headache, unspecified, R79.89 - Other specified abnormal findings of blood chemistry, Z00.01 - Encounter for general adult medical examination with abnormal findings, Z87.39 - Personal history of other diseases of the musculoskeletal system and connective tissue TSH reflex Free T4 Today E66.09 - Other obesity due to excess calories, G89.29 - Other chronic pain, I10 - Essential (primary) hypertension, R20.2 - Paresthesia of skin, R51.9 - Headache, unspecified, R79.89 - Other specified abnormal findings of blood chemistry, Z00.01 - Encounter for general adult medical examination with abnormal findings, Z87.39 - Personal history of other diseases of the musculoskeletal system and connective tissue Hemoglobin A1c Today E66.09 - Other obesity due to excess calories, G89.29 - Other chronic pain, I10 - Essential (primary) hypertension, R20.2 - Paresthesia of skin, R51.9 - Headache, unspecified, R79.89 - Other specified abnormal findings of blood chemistry, Z00.01 - Encounter for general adult medical examination with abnormal findings, Z87.39 - Personal history of other diseases of the musculoskeletal system and connective tissue Comprehensive [place]. Panel Fast Today E66.09 - Other obesity due to excess calories, G89.29 - Other chronic pain, I10 - Essential (primary) hypertension, R20.2 - Paresthesia of skin, R51.9 - Headache, unspecified, R79.89 - Other specified abnormal findings of blood chemistry, Z00.01 - Encounter for general adult medical examination with abnormal findings, Z87.39 - Personal history of other diseases of the musculoskeletal system and connective tissue Vitamin D 25-OH (D2 and D3) Today E66.09 - Other obesity due to excess calories, G89.29 - Other chronic pain, I10 - Essential (primary) hypertension, R20.2 - Paresthesia of skin, R51.9 - Headache, unspecified, R79.89 - Other specified abnormal findings of blood chemistry, Z00.01 - Encounter for general adult medical examination with abnormal findings, Z87.39 - Personal history of other diseases of the musculoskeletal system and connective tissue Vitamin B12 Today E66.09 - Other obesity due to excess calories, G89.29 - Other chronic pain, I10 - Essential (primary) hypertension, R20.2 - Paresthesia of skin, R51.9 - Headache, unspecified, R79.89 - Other specified abnormal findings of blood chemistry, Z00.01 - Encounter for general adult medical examination with abnormal findings, Z87.39 - Personal history of other diseases of the musculoskeletal system and connective tissue Medications: New atenolol 25 mg PO DAILY 30 tabs 0RF Coding Level of Care Code Est Pt Level 4 (13608) Est Pt Prev Care 40-64y(74104) Diagnoses Encounter for general adult medical examination with abnormal findings Z00.01 Hypertension, essential I10 Obesity due to excess calories E66.09 LFT elevation R79.89 Paresthesia of left upper extremity R20.2 History of herniated intervertebral disc Z87.39 Chronic headaches R51.9; G89.29
== END 2024-01-22 14:57 | disposition home or self-care (01) ==
PROVIDERS: PCP Internal Medicine; Visit Provider Internal Medicine
DX: Z00.00 Encounter for general adult medical examination without abnormal findings (principal); I10 Essential (primary) hypertension; E66.09 Other obesity due to excess calories; Z68.30 Body mass index [BMI] 30.0-30.9, adult; R79.89 Other specified abnormal findings of blood chemistry; R20.2 Paresthesia of skin; Z87.39 Personal history of other diseases of the musculoskeletal system and connective tissue; R51.9 Headache, unspecified; G89.29 Other chronic pain
CPT/HCPCS: 99214; 99396

== ENCOUNTER 2024-01-28 07:06 | Outpatient (REF) | payer OTHER, SELFPAY ==
[2024-01-28 10:05] LABS: MANUAL DIFF FLAG NO
[2024-01-28 10:38] LABS: Alanine Aminotransferase 52 U/L (0-31); Alkaline Phosphatase 78 U/L (39-117); Anion Gap 11 (12-20); Aspartate Amino Transferase 44 U/L (5-31); Bilirubin Total 0.9 mg/dL (0.0-1.0); Blood Urea Nitrogen 15 mg/dL (9-16); Calcium 9.7 mg/dL (8.4-10.2); Carbon Dioxide 27 mmol/L (22-29); Chloride 108 mmol/L (96-108); Cholesterol 213 mg/dL (<200); Estimated Glomerular Filt Rate 59; Glucose Fasting 102 mg/dL (60-99); HDL Cholesterol 68 mg/dL (>40); LDL Cholesterol Calculated 128 mg/dL (<100); Potassium 4.3 mmol/L (3.3-5.1); Sodium 142 mmol/L (135-145); Total Protein 7.3 g/dL (6.5-8.0); Triglycerides 87 mg/dL (<150)
[2024-01-28 10:51] LABS: Estimated Average Glucose 103 mg/dL; Hemoglobin A1c % 5.2 % (<6.0)
[2024-01-28 10:56] LABS: TSH reflex Free T4 2.42 uIU/mL (0.32-4.0)
[2024-01-28 10:57] LABS: Vitamin B12 1134 pg/mL (200-900)
[2024-01-28 11:19] LABS: Basophils Percent Auto 0.9 % (0-2); Eosinophils Absolute Auto 0.2 X10*3/uL (0.0-0.4); Eosinophils Percent Auto 3.8 % (0-4); Hematocrit 44.9 % (37.0-47.0); Hemoglobin 15.6 g/dl (12.0-16.0); Imm Gran Abs Auto 0.01 X10*3/uL (0.00-0.03); Imm Gran Pct Auto 0.2 % (0.0-0.4); Lymphocytes Absolute Auto 1.9 X10*3/uL (1.2-4.9); Lymphocytes Percent Auto 44.4 % (20-40); Mean Corpuscular HGB Conc 34.7 g/dl (31.0-35.0); Mean Corpuscular Hemoglobin 31.4 pg (27.0-33.0); Mean Corpuscular Volume 90.3 fL (80.0-98.0); Mean Platelet Volume 10.4 fL (9.4-12.3); Monocytes Absolute Auto 0.4 X10*3/uL (0.1-1.2); Monocytes Percent Auto 9.2 % (2-11); Neutrophils Absolute Auto 1.8 x10*3/uL (2.0-8.3); Neutrophils Percent Auto 41.5 % (45-73); Platelet Count 164 X10*3/uL (160-400); Red Blood Count 4.97 X10*6/uL (4.20-5.50); Red Cell Distribution Width 13.2 % (11.0-16.0); White Blood Count 4.3 X10*3/uL (4.8-10.8)
[2024-02-01 17:22] LABS: Vitamin D 25-OH, D2 <4 ng/mL; Vitamin D 25-OH, D3 49 ng/mL; Vitamin D 25-OH, Total 49 ng/mL (30-100)
== END 2024-01-28 07:07 | disposition home or self-care (01) ==
LOC: HO.HMGCLDS 07:06
PROVIDERS: PCP Internal Medicine; Visit Provider Internal Medicine
DX: Z00.01 Encounter for general adult medical examination with abnormal findings (principal); I10 Essential (primary) hypertension; R79.89 Other specified abnormal findings of blood chemistry; Z87.39 Personal history of other diseases of the musculoskeletal system and connective tissue; R51.9 Headache, unspecified; G89.29 Other chronic pain; R20.2 Paresthesia of skin; E66.09 Other obesity due to excess calories
CPT/HCPCS: 36415; 80053; 80061; 82306; 82607; 83036; 84443; 85025

== ENCOUNTER 2024-02-09 08:29 | Outpatient (REF) | payer OTHER, SELFPAY ==
--- NOTE | 2024-02-09 08:32 | EMG_ITS ---
Left median and ulnar motor and sensory studies were performed. Left radial and median and lateral antecubital brachial sensory studies were performed and needle examination was performed. IMPRESSION: This study did not reveal any significant abnormality to suggest entrapment neuropathy, plexopathy, or radiculopathy. MD ALEXANDER Jaimes/JOCELYNL / [id number]
== END 2024-02-09 08:30 | disposition home or self-care (01) ==
LOC: HO.NEURO 08:29
PROVIDERS: PCP Internal Medicine; Visit Provider Internal Medicine
DX: R20.2 Paresthesia of skin (principal); Z87.39 Personal history of other diseases of the musculoskeletal system and connective tissue
CPT/HCPCS: 95886; 95910

== ENCOUNTER 2024-02-10 13:04 | Outpatient (AMB) | payer OTHER, SELFPAY ==
[2024-02-10 13:05] VITALS: BP 148/86; PULSE 52; O2SAT 95; BMI 30.5
--- NOTE | 2024-02-10 13:05 | MHC.PC.OV ---
Vital Signs 02/10/24 13:05 Height 5 ft 6 in Weight 189 lb 4 oz BMI 30.5 BP 148/86 H Blood Pressure Location Rt brachial Position Sitting Pulse 52 Pulse Source Pulse Oximeter Pulse Oximetry (%) 95 Oxygen Delivery Method Room Air Intake Visit Reasons: 3week follow up Allergies No Known Allergies [No Known Allergies*] Allergy (Verified 02/10/24 13:06) Medication List - Last Reconciled 02/10/24 by Bert Hernandez MD atenolol 25 mg PO DAILY losartan-hydrochlorothiazide 50-12.5 mg 1 tab PO DAILY Tobacco use date assessed: 02/10/24 Dental Screening Dental Screen Date: 02/10/24 Did you have a dental visit in the last 12 months?: Yes Did you have a dental problem in the last 6 months where you did not have access to dental care?: No Was dental information given to patient?: Patient has dentist HPI 3week follow up HPI Details Patient is a 58-year-old female came in today to have a follow-up on blood pressure and to go over labs Her B12 level came back too high, patient is taking supplement she will stop LFTs are mildly elevated but stable Patient is also prediabetic Blood pressure is still running high with atenolol 25 mg however heart rate is in 50s I am changing medication to losartan hydrochlorothiazide, patient will continue to monitor her blood pressure at home and if still running above 140 she may add atenolol 25 mg 2 it She will get back to me in a week with blood pressure readings She continued to have pain left shoulder with paresthesia arm EMG nerve conduction study came back normal I am ordering physical therapy for the patient to see if that helps her. She will return for follow-up in 3 months [facility] Medical History Exposure to COVID-19 virus Family History Other Substance use disorder Social History Housing: House Patient Tobacco Use Status: Never used Tobacco e-Cigarette/Vaping Use: Never Used Second Hand Smoke Exposure: Yes (as a child) Advance Directives Date on File: 01/07/24 service: No Current occupational status: employed Cognitive needs: No Hearing needs: No Vision needs: No Questionnaire Thrive Questionnaire Date Thrive assessed: 02/10/24 I am a: Patient What is your living situation today?: I have a steady place to live Within the past 12 months, did the food you bought not last and you didn't have the money to get more?: Never true Within the past 12 months, did you worry whether your food would run out before you got money to buy more?: Never true Do you have trouble paying for medicines?: No Do you have trouble getting transportation to medical appointments?: No Do you have trouble paying your heating and electricity bill?: No Do you have trouble taking care of your child, family member or friend?: No Do you have trouble with day-to-day activities such as bathing, preparing meals, shopping, managing finances, etc.?: No Are you currently unemployed and looking for a job?: No Are you interested in more education?: No Please select the resources that you would like help with: None Currently or been in a relationship where the following occur: No concerns reported THRIVE Score: 0 AUDIT C Alcohol Use Questionnaire (AUDIT-C) 1. How often do you have a drink containing alcohol?: Monthly or less 2. How many drinks containing alcohol do you have on a typical day when you are drinking?: 1 or 2 3. How often do you have six or more drinks on one occasion?: Never Total Score: 1 Score Reviewed/Action Taken: Yes LENA-7 AMB Questionnaire LENA-7 Date LENA - 7 assessed: 02/10/24 Feeling nervous, anxious, or on edge: 0 = Not at all Not being able to stop or control worryin = Not at all Worrying too much about different things: 0 = Not at all Trouble relaxin = Not at all Being so restless that it is hard to sit still: 0 = Not at all Becoming easily annoyed or irritable: 0 = Not at all Feeling afraid as if something awful might happen: 0 = Not at all Total LENA-7 score (0-4 normal; 5-9 mild; 10-14 moderate; 15-21 severe): 0 Source: Developed by Drs. Jass Arango, Natalya Barone, Oswaldo Augustin and colleagues, with an educational lorena from [employer]. LENA-7 Assessment Billing LENA-7 Assessment Tool: LENA-7 Assessment 81575 Review of Systems Const Denies chills and Denies fever(s) ENT Denies epistaxis and Denies nasal discharge Card Denies chest pain Resp Denies chest congestion, Denies cough and Denies hemoptysis GI Denies diarrhea and Denies nausea Skin/Breast Denies rash Neuro Reports no additional complaints Psych Reports no additional complaints Endo Reports no additional complaints Physical exam (Primary Care) Vital Signs: Last Vital Signs Pulse 52 02/10/24 13:05 BP 148/86 H 02/10/24 13:05 Pulse Ox 95 02/10/24 13:05 Oxygen Delivery Method Room Air 02/10/24 13:05 BMI result Body Mass Index 30.5 Tobacco/Smoking Status: Tobacco use Status Tobacco use date assessed 02/10/24 02/10/24 13:08 Patient Tobacco Use Status Never used Tobacco 02/10/24 13:08 e-Cigarette/Vaping Use Never Used 02/10/24 13:08 Thrive Assessment: Date of Thrive Assessment Date Thrive assessed 02/10/24 02/10/24 13:14 Currently or been in a relationship where the following occur: No concerns reported Const General: cooperative, comfortable and no acute distress Orientation/consciousness: patient oriented x3 HENMT Head: Yes normocephalic Eyes General: appearance normal, both eyes and all related structures Neck Neck: Yes supple Resp Effort & Inspection: normal respiratory effort, no cough and no stridor Cardio Rhythm: regular rhythm Heart sounds: S1 normal heart sound present and S2 normal heart sound present Skin General skin exam: turgor normal Neuro General: patient oriented x3, tone normal and moves all extremities Extrem Right lower extremity: no edema Left lower extremity: no edema Assessment and Plan Assessment & Plan (1) Hypertension, essential: Code(s): I10 - Essential (primary) hypertension (2) Pain in left shoulder: Code(s): M25.512 - Pain in left shoulder Qualifiers: Chronicity: chronic Qualified Code(s): M25.512 - Pain in left shoulder; G89.29 - Other chronic pain (3) LFT elevation: Code(s): R79.89 - Other specified abnormal findings of blood chemistry (4) Prediabetes: Code(s): R73.03 - Prediabetes (5) Elevated vitamin B12 level: Code(s): R74.8 - Abnormal levels of other serum enzymes Plan Patient is a 58-year-old female came in today to have a follow-up on blood pressure and to go over labs Her B12 level came back too high, patient is taking supplement she will stop LFTs are mildly elevated but stable Patient is also prediabetic Blood pressure is still running high with atenolol 25 mg however heart rate is in 50s I am changing medication to losartan hydrochlorothiazide, patient will continue to monitor her blood pressure at home and if still running above 140 she may add atenolol 25 mg 2 it She will get back to me in a week with blood pressure readings She continued to have pain left shoulder with paresthesia arm EMG nerve conduction study came back normal I am ordering physical therapy for the patient to see if that helps her. She will return for follow-up in 3 months Orders: Orders PT Evaluation and Treatment Today M25.512 - Pain in left shoulder Medications: New losartan-hydrochlorothiazide 50-12.5 mg 1 tab PO DAILY 90 tabs 0RF Coding Level of Care Code Est Pt Level 4 (34477) Diagnoses Hypertension, essential I10 Chronic left shoulder pain M25.512; G89.29 Chronicity: chronic LFT elevation R79.89 Prediabetes R73.03 Elevated vitamin B12 level R74.8 Additional Codes LENA-7 Assessment Billing - LENA-7 Assessment Tool: LENA-7 Assessment 44752 ([id number])
== END 2024-02-10 13:24 | disposition home or self-care (01) ==
PROVIDERS: PCP Internal Medicine; Visit Provider Internal Medicine
DX: I10 Essential (primary) hypertension (principal); M25.512 Pain in left shoulder; G89.29 Other chronic pain; R79.89 Other specified abnormal findings of blood chemistry; R73.03 Prediabetes; R74.8 Abnormal levels of other serum enzymes

== ENCOUNTER → 2024-02-10 13:04 | Outpatient (BNVA) | payer OTHER, SELFPAY | PROVIDERS: PCP Internal Medicine; Visit Provider Internal Medicine | DX: I10 Essential (primary) hypertension (principal); G89.29 Other chronic pain; M25.512 Pain in left shoulder; R79.89 Other specified abnormal findings of blood chemistry; R73.03 Prediabetes; R74.8 Abnormal levels of other serum enzymes | CPT/HCPCS: 96127 ==

== ENCOUNTER 2024-03-14 15:00 | Outpatient (RCR) | payer OTHER, SELFPAY ==
--- NOTE | 2024-03-09 14:58 | MHC.PT.EP ---
[facility] [place] Office [place] Office [place] Office [address] Eric Parada [address] [phone] F: [phone] F: [phone] F: [phone] F: [phone] Physical Therapy Plan of Care Date of Evaluation: 03/09/24 Date of Surgery: N/A Diagnosis: pain in left shoulder (RL) Assessment: pt is a 58 y/o female presenting to physical therapy w/ referring diagnosis of left shoulder pain. I am more suspicious of a peripheral nerve issue as I was not able to reproduce her radicular symptoms w/ cervical testing. Her EMG was (+) for some ulnar nerve impairments. I cannot rule out cervical involvement completely ands he does not have an MRI to compare to either. Will continue to monitor and treat/refer as appropriate. Impairments include pain, decreased range of motion, decreased strength, impaired functional mobility, impaired postural awareness, and altered ambulation mechanics. pt is a good candidate for skilled PT due to age, potential remediation of impairments, typical disease/condition progression and prognosis, comorbidities, and motivation. pt would benefit from skilled PT intervention to provide a tailored strengthening and stretching exercise program, functional training, gait training, postural re-training, neuromuscular re-education, modalities as needed for pain, equipment safety demonstration. Frequency and Duration: The patient will be seen 2x/wk for 5 wks Short Term Goals: pt will be I w/ HEP to promote self-management of condition. pt will demo proper posture w/ lumbar roll to promote neutral spine w/ seated ADLs. Cage Fighter Goals: pt will report a statistically significant improvement in self-reported outcome measure, SPADI, to promote return to PLOF. pt will improve L shoulder flex and abd strength by 1 MMT grade to promote ease in picking up 10# object in L UE. Treatment Plan: Modalities to reduce pain, spasms and effusion. Manual therapy to restore motion and function. Therapeutic exercise to improve strength and flexibility. Neuromuscular re-education for posture and balance. Therapeutic activities to return to functional activities of daily living. Electronically signed by: Marlene Monahan PT, DPT Please sign and return to therapist. Thank you for your referral.
--- NOTE | 2024-04-05 13:41 | MHC.PT.DC ---
[facility] [place] Office [place] [facility] [place] [facility] [address] Eric Parada 140 [facility] [phone] F: [phone] F: [phone] F: [phone] F: [phone] Physical Therapy Discharge Report Diagnosis: pain in left shoulder (RL) Date of Surgery: N/A Date of Evaluation: 03/09/24 Date of Discharge: 04/05/24 Treatments to Date: 2 Cancellations to Date: 6 No Shows to Date: 1 Discharge Status: Patient Elected to Stop Discharge Summary: The patient called to discharge herself from physical therapy with the reason of this program was not for me. She attended the initial evaluation and one follow-up. She is discharged at this time per her request. Electronically signed by: Marlene Monahan PT, DPT Please sign and return to therapist. Thank you for your referral.
== END 2024-04-05 13:41 | disposition home or self-care (01) ==
LOC: HO.PT 15:00
PROVIDERS: PCP Internal Medicine; Visit Provider Internal Medicine
DX: M25.512 Pain in left shoulder (principal)
CPT/HCPCS: 97162

== ENCOUNTER 2024-05-20 12:59 | Outpatient (AMB) | payer OTHER, SELFPAY ==
[2024-05-20 13:01] VITALS: BP 150/88; PULSE 49; O2SAT 98; BMI 32.0
--- NOTE | 2024-05-20 13:01 | A.OFFPC_ITS ---
Vital Signs 05/20/24 13:01 Height 5 ft 6 in Weight 198 lb 4 oz BMI 32.0 BP 150/88 H Blood Pressure Location Rt brachial Position Sitting Pulse 49 L Pulse Source Pulse Oximeter Pulse Oximetry (%) 98 Oxygen Delivery Method Room Air Intake Visit Reasons: 3 month follow up Allergies No Known Allergies [No Known Allergies*] Allergy (Verified 05/20/24 13:01) Medication List - Last Reconciled 05/20/24 by Bert Hernandez MD atenolol 50 mg PO Q24H losartan-hydrochlorothiazide 50-12.5 mg 1 tab PO DAILY Tobacco use date assessed: 05/20/24 Dental Screening Dental Screen Date: 05/20/24 Did you have a dental visit in the last 12 months?: Yes Did you have a dental problem in the last 6 months where you did not have access to dental care?: No Was dental information given to patient?: Patient has dentist HPI 3 month follow up HPI Details History - bulleted - The patient is a 58-year-old female pr esenting with a follow-up for management of hypertension. - Blood pressure readings at home consis tently in the 150s, indicating hypertension remains uncontrolled. - Current medications include 50 mg [place] olol daily, Losartan- Hydrochlorothiazide. - Blood pressure challenges noted despit e adherence to medication regimen. - Previous lab work in January showed fasting blood sugar of 102 and slightly elevated liver enzymes. - Vitamin B12 deficiency previously iden tified; patient not currently taking supplementation. - Other supplements include Vitamin B6, B2, magnesium, zinc, and Vitamin D as per shingle inspector recommendations. - No recent vitamin B12 supplementation noted. Review of Systems - Cardiovascular: Denies chest pain, devaughn rtness of breath, or swelling of ankles. - General: No fever no chills - Neurological: No headaches no dizziness - Ear nose throat: No sore throat no hearing difficulty no ear pain - Cardiovascular: No syncope, no chest pain, no palpitations - Gastrointestinal: No nausea vomiting or diarrhea - Endocrine: No polyuria polydipsia no heat intolerance - Genitourinary: No dysuria , no blood in urine Physical Exam - General: No acute distress - HEENT: No acute findings - Neck: Supple - Respiratory system: Able to talk in f ull sentences, no audible wheeze - cardiovascular: S1-S2 regular in rat e and rhythm - Gastrointestinal: No pain - Extremities: No new findings - 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 - Increase Losartan- Hydrochlorothiazide to twice daily. - Monitor blood pressure at home and sen d readings through the patient portal. - Resume Atenolol at half a tablet if bl ood pressure remains elevated after adjustments. - Repeat laboratory tests for blood suga r and liver function later this month. - Return for follow-up in approximately three months. [facility] Medical History Exposure to COVID-19 virus Family History Other Substance use disorder Social History Housing: House Patient Tobacco Use Status: Never used Tobacco e-Cigarette/Vaping Use: Never Used Second Hand Smoke Exposure: Yes (as a child) Advance Directives Date on File: 01/07/24 service: No Current occupational status: employed Cognitive needs: No Hearing needs: No Vision needs: No Questionnaire PHQ-9 Over the last 2 weeks, how often have you been bothered by any of the following problems? 1. Little interest or pleasure in doing things: not at all 2. Feeling down, depressed, or hopeless: not at all 3. Trouble falling or staying asleep, or sleeping too much: several days 4. Feeling tired or having little energy: several days 5. Poor appetite or overeating: not at all 6. Feeling bad about yourself - or that you are a failure or have let yourself or your family down: not at all 7. Trouble concentrating on things, such as reading the newspaper or watching television: not at all 8. Moving or speaking so slowly that other people could have noticed. Or the opposite - being so fidgety or restless that you have been moving around a lot more than usual: not at all 9. Thoughts that you would be better off or of hurting yourself in some way: not at all Total score: 2 Depression Screening Interpretation: Negative Depression Screening Done: Yes [id number] - PHQ-9 Billing: Yes Source: Developed by Mark Matoset B.W. Abisai, Oswaldo Augustin and colleagues, with an educational lorena from [employer]. Thrive Questionnaire Date Thrive assessed: 05/20/24 I am a: Patient What is your living situation today?: I have a steady place to live Within the past 12 months, did the food you bought not last and you didn't have the money to get more?: Never true Within the past 12 months, did you worry whether your food would run out before you got money to buy more?: Never true Do you have trouble paying for medicines?: No Do you have trouble getting transportation to medical appointments?: No Do you have trouble paying your heating and electricity bill?: No Do you have trouble taking care of your child, family member or friend?: No Do you have trouble with day-to-day activities such as bathing, preparing meals, shopping, managing finances, etc.?: No Are you currently unemployed and looking for a job?: No Are you interested in more education?: No Please select the resources that you would like help with: None Currently or been in a relationship where the following occur: No concerns reported THRIVE Score: 0 AUDIT C Alcohol Use Questionnaire (AUDIT-C) 1. How often do you have a drink containing alcohol?: Monthly or less 2. How many drinks containing alcohol do you have on a typical day when you are drinking?: 1 or 2 3. How often do you have six or more drinks on one occasion?: Never Total Score: 1 Score Reviewed/Action Taken: Yes LENA-7 AMB Questionnaire LENA-7 Date LENA - 7 assessed: 05/20/24 Feeling nervous, anxious, or on edge: 0 = Not at all Not being able to stop or control worryin = Not at all Worrying too much about different things: 0 = Not at all Trouble relaxin = Not at all Being so restless that it is hard to sit still: 0 = Not at all Becoming easily annoyed or irritable: 0 = Not at all Feeling afraid as if something awful might happen: 0 = Not at all Total LENA-7 score (0-4 normal; 5-9 mild; 10-14 moderate; 15-21 severe): 0 Source: Developed by Drs. Jass Arango, Natalya Oswaldo Leung and colleagues, with an educational lorena from [employer]. LENA-7 Assessment Billing LENA-7 Assessment Tool: LENA-7 Assessment 40723 Physical exam (Primary Care) Vital Signs: Last Vital Signs Pulse 49 L 05/20/24 13:01 BP 150/88 H 05/20/24 13:01 Pulse Ox 98 05/20/24 13:01 Oxygen Delivery Method Room Air 05/20/24 13:01 BMI result Body Mass Index 32.0 Tobacco/Smoking Status: Tobacco use Status Tobacco use date assessed 05/20/24 05/20/24 13:08 Patient Tobacco Use Status Never used Tobacco 05/20/24 13:08 e-Cigarette/Vaping Use Never Used 05/20/24 13:08 PHQ-9: PHQ-9 Score PHQ-9: Total score 2 05/20/24 13:08 Depression Screening Interpretation: Negative Thrive Assessment: Date of Thrive Assessment Date Thrive assessed 05/20/24 05/20/24 13:08 Currently or been in a relationship where the following occur: No concerns reported Coding Level of Care Code Est Pt Level 3 (97420) Diagnoses Hypertension, essential I10 Class 1 obesity due to excess calories with serious comorbidity and body mass index (BMI) of 32.0 to 32.9 in adult E66.811; E66.09; Z68.32 Obesity classification: adult class 1 (BMI 30 - 34.9) Serious obesity comorbidity presence: with serious comorbidity Body mass index: BMI 32.0-32.9 LFT elevation R79.89 Prediabetes R73.03 Elevated vitamin B12 level R74.8 Additional Codes LENA-7 Assessment Billing - LENA-7 Assessment Tool: LENA-7 Assessment 54799 ([id number]) PHQ-9 - 41204 - PHQ-9 Billing: Yes ([id number]) Assessment & Plan Assessment & Plan (1) Hypertension, essential: Code(s): I10 - Essential (primary) hypertension Category: Medical (2) Obesity due to excess calories: Code(s): E66.09 - Other obesity due to excess calories Category: Medical Qualifiers: Obesity classification: adult class 1 (BMI 30 - 34.9) Serious obesity comorbidity presence: with serious comorbidity Body mass index: BMI 32.0-32.9 Qualified Code(s): E66.811 - Obesity, class 1; E66.09 - Other obesity due to excess calories; Z68.32 - Body mass index [BMI] 32.0-32.9, adult (3) LFT elevation: Code(s): R79.89 - Other specified abnormal findings of blood chemistry Category: Medical (4) Prediabetes: Code(s): R73.03 - Prediabetes Category: Medical (5) Elevated vitamin B12 level: Code(s): R74.8 - Abnormal levels of other serum enzymes Category: Medical Plan History - bulleted - The patient is a 58-year-old female presenting with a follow-up for management of hypertension. - Blood pressure readings at home consistently in the 150s, indicating hypertension remains uncontrolled. - Current medications include 50 mg Atenolol daily, Losartan- Hydrochlorothiazide. - Blood pressure challenges noted despite adherence to medication regimen. - Previous lab work in January showed fasting blood sugar of 102 and slightly elevated liver enzymes. - Vitamin B12 deficiency previously identified; patient not currently taking supplementation. - Other supplements include Vitamin B6, B2, magnesium, zinc, and Vitamin D as per shingle inspector recommendations. - No recent vitamin B12 supplementation noted. Review of Systems - Cardiovascular: Denies chest pain, shortness of breath, or swelling of ankles. - General: No fever no chills - Neurological: No headaches no dizziness - Ear nose throat: No sore throat no hearing difficulty no ear pain - Cardiovascular: No syncope, no chest pain, no palpitations - Gastrointestinal: No nausea vomiting or diarrhea - Endocrine: No polyuria polydipsia no heat intolerance - Genitourinary: No dysuria , no blood in urine Physical Exam - General: No acute distress - HEENT: No acute findings - Neck: Supple - Respiratory system: Able to talk in full sentences, no audible wheeze - cardiovascular: S1-S2 regular in rate and rhythm - Gastrointestinal: No pain - Extremities: No new findings - 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 - Increase Losartan- Hydrochlorothiazide to twice daily. - Monitor blood pressure at home and send readings through the patient portal. - Resume Atenolol at half a tablet if blood pressure remains elevated after adjustments. - Repeat laboratory tests for blood sugar and liver function later this month. - Return for follow-up in approximately three months. Orders: Orders Comprehensive Met. Panel Today E66.09 - Other obesity due to excess calories, I10 - Essential (primary) hypertension, R73.03 - Prediabetes, R74.8 - Abnormal levels of other serum enzymes, R79.89 - Other specified abnormal findings of blood chemistry Complete Blood Count Auto Diff Today E66.09 - Other obesity due to excess calories, I10 - Essential (primary) hypertension, R73.03 - Prediabetes, R74.8 - Abnormal levels of other serum enzymes, R79.89 - Other specified abnormal findings of blood chemistry Hemoglobin A1c Today E66.09 - Other obesity due to excess calories, I10 - Essential (primary) hypertension, R73.03 - Prediabetes, R74.8 - Abnormal levels of other serum enzymes, R79.89 - Other specified abnormal findings of blood chemistry Vitamin B12 Today E66.09 - Other obesity due to excess calories, I10 - Essential (primary) hypertension, R73.03 - Prediabetes, R74.8 - Abnormal levels of other serum enzymes, R79.89 - Other specified abnormal findings of blood chemistry
== END 2024-05-20 13:18 | disposition home or self-care (01) ==
PROVIDERS: PCP Internal Medicine; Visit Provider Internal Medicine
DX: I10 Essential (primary) hypertension (principal); E66.811 Obesity, class 1; E66.09 Other obesity due to excess calories; Z68.32 Body mass index [BMI] 32.0-32.9, adult; R79.89 Other specified abnormal findings of blood chemistry; R73.03 Prediabetes; R74.8 Abnormal levels of other serum enzymes

== ENCOUNTER → 2024-05-20 12:59 | Outpatient (BNVA) | payer OTHER, SELFPAY | PROVIDERS: PCP Internal Medicine; Visit Provider Internal Medicine | DX: I10 Essential (primary) hypertension (principal); E66.811 Obesity, class 1; E66.09 Other obesity due to excess calories; Z68.32 Body mass index [BMI] 32.0-32.9, adult; R79.89 Other specified abnormal findings of blood chemistry; R73.03 Prediabetes; R74.8 Abnormal levels of other serum enzymes; Z79.899 Other long term (current) drug therapy | CPT/HCPCS: 96127 ==

== ENCOUNTER 2024-08-23 13:30 | Outpatient (AMB) | payer OTHER, SELFPAY ==
[2024-08-23 13:40] VITALS: BP 118/78; PULSE 68; O2SAT 98; BMI 32.6
--- NOTE | 2024-08-23 13:40 | A.OFFPC_ITS ---
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 - She is currently managing her blood pr essure, reporting improvement with losartan and hydrochlorothiazide whilst atenolol has been discontinued. - She acknowledges being prediabetic and is attempting weight loss to improve her condition. - Her last lab tests indicated mildly el evated liver enzymes, consistent with fatty liver, which has been stable. - Previously experienced tinnitus has im proved with nortriptyline, though intermittent ringing persists. Medication was prescribed through ENT Problem List - Essential Hypertension - Prediabetes - Fatty Liver - Tinnitus - obesity Patient Instructions - Continue taking losartan and hydrochlo rothiazide as prescribed. - Monitor blood pressure regularly and r eport any significant drops, particularly systolic readings below 110. - Aim to continue with dietary changes a nd begin walking as the weather permits to aid weight loss. - Schedule fasting lab tests in the [facility] ing. - Refrain from taking vitamin B12 supple ments as levels were previously high. - Follow up with the planned tests in [facility] and attend a physical exam. Review of Systems - General: No fever no chills - Neurological: No headaches no dizziness - Ear nose throat: No sore throat no hearing difficulty no ear pain - Cardiovascular: No syncope, no chest pain, no palpitations - Gastrointestinal: No nausea vomiting or diarrhea - Endocrine: No polyuria polydipsia no heat intolerance - Genitourinary: No dysuria , no blood in urine Physical Exam - General: No acute distress - HEENT: No acute findings - Neck: Supple - Respiratory system: Able to talk in f ull sentences, no audible wheeze - Cardiovascular: S1-S2 regular in rate and rhythm - Gastrointestinal: No pain - Extremities: No new findings - INDUSTRIAL ECOLOGIST: Alert awake oriented x3 motor se nsory intact - Skin: Normal turgor [facility] Medical History Exposure to COVID-19 virus Surgical History No pertinent past surgical history Family History Other Substance use disorder Social History Housing: House Patient Tobacco Use Status: Never used Tobacco e-Cigarette/Vaping Use: Never Used Second Hand Smoke Exposure: Yes (as a child) Advance Directives Date on File: 01/07/24 service: No Current occupational status: employed Cognitive needs: No Hearing needs: No Vision needs: No Questionnaire PHQ-9 Over the last 2 weeks, how often have you been bothered by any of the following problems? 1. Little interest or pleasure in doing things: not at all 2. Feeling down, depressed, or hopeless: not at all 3. Trouble falling or staying asleep, or sleeping too much: several days 4. Feeling tired or having little energy: several days 5. Poor appetite or overeating: not at all 6. Feeling bad about yourself - or that you are a failure or have let yourself or your family down: not at all 7. Trouble concentrating on things, such as reading the newspaper or watching television: not at all 8. Moving or speaking so slowly that other people could have noticed. Or the opposite - being so fidgety or restless that you have been moving around a lot more than usual: not at all 9. Thoughts that you would be better off or of hurting yourself in some way: not at all Total score: 2 Depression Screening Interpretation: Negative Depression Screening Done: Yes 40893 - PHQ-9 Billing: Yes Source: Developed by Drs. Jass Arango, Natalya Barone, Oswaldo Augustin and colleagues, with an educational lorena from [employer]. Thrive Questionnaire Date Thrive assessed: 05/20/24 LENA-7 AMB Questionnaire LENA-7 Date LENA - 7 assessed: 05/20/24 Source: Developed by Drs. Jass Arango, Natalya Barone, Oswaldo Augustin and colleagues, with an educational lorena from [employer]. Physical exam (Primary Care) Vital Signs: Last Vital Signs Pulse 68 08/23/24 13:40 BP 118/78 08/23/24 13:40 Pulse Ox 98 08/23/24 13:40 BMI result Body Mass Index 32.6 Tobacco/Smoking Status: Tobacco use Status Tobacco use date assessed 05/20/24 08/23/24 13:41 Patient Tobacco Use Status Never used Tobacco 08/23/24 13:41 e-Cigarette/Vaping Use Never Used 08/23/24 13:41 PHQ-9: PHQ-9 Score PHQ-9: Total score 2 08/23/24 13:54 Depression Screening Interpretation: Negative Thrive Assessment: Date of Thrive Assessment Date Thrive assessed 05/20/24 08/23/24 13:41 Coding Level of Care Code Est Pt Level 4 (67773) Diagnoses Hypertension, essential I10 Class 1 obesity due to excess calories with serious comorbidity and body mass index (BMI) of 32.0 to 32.9 in adult E66.811; E66.09; Z68.32 Body mass index: BMI 32.0-32.9 Obesity classification: adult class 1 (BMI 30 - 34.9) Serious obesity comorbidity presence: with serious comorbidity LFT elevation R79.89 Chronic tension-type headache, not intractable G44.229 Headache type: tension-type Intractability: not intractable Prediabetes R73.03 Elevated vitamin B12 level R74.8 Additional Codes PHQ-9 - 22058 - PHQ-9 Billing: Yes ([id number]) Assessment & Plan Assessment & Plan (1) Hypertension, essential: Code(s): I10 - Essential (primary) hypertension Category: Medical (2) Obesity due to excess calories: Code(s): E66.09 - Other obesity due to excess calories Category: Medical Qualifiers: Body mass index: BMI 32.0-32.9 Obesity classification: adult class 1 (BMI 30 - 34.9) Serious obesity comorbidity presence: with serious comorbidity Qualified Code(s): E66.811 - Obesity, class 1; E66.09 - Other obesity due to excess calories; Z68.32 - Body mass index [BMI] 32.0-32.9, adult (3) LFT elevation: Code(s): R79.89 - Other specified abnormal findings of blood chemistry Category: Medical (4) Chronic headaches: Code(s): R51.9 - Headache, unspecified; G89.29 - Other chronic pain Category: Medical Qualifiers: Headache type: tension-type Intractability: not intractable Qualified Code(s): G44.229 - Chronic tension-type headache, not intractable (5) Prediabetes: Code(s): R73.03 - Prediabetes Category: Medical (6) Elevated vitamin B12 level: Code(s): R74.8 - Abnormal levels of other serum enzymes Category: Medical Plan History - The patient is a 58-year-old female presenting with a regular follow-up for chronic conditions management. - She is currently managing her blood pressure, reporting improvement with losartan and hydrochlorothiazide whilst atenolol has been discontinued. - She acknowledges being prediabetic and is attempting weight loss to improve her condition. - Her last lab tests indicated mildly elevated liver enzymes, consistent with fatty liver, which has been stable. - Previously experienced tinnitus has improved with nortriptyline, though intermittent ringing persists. Medication was prescribed through ENT Problem List - Essential Hypertension - Prediabetes - Fatty Liver - Tinnitus - obesity Patient Instructions - Continue taking losartan and hydrochlorothiazide as prescribed. - Monitor blood pressure regularly and report any significant drops, particularly systolic readings below 110. - Aim to continue with dietary changes and begin walking as the weather permits to aid weight loss. - Schedule fasting lab tests in the morning. - Refrain from taking vitamin B12 supplements as levels were previously high. - Follow up with the planned tests in January and attend a physical exam. Orders: Orders Complete Blood Count Auto Diff Today E66.09 - Other obesity due to excess calories, E66.811 - Obesity, class 1, G89.29 - Other chronic pain, I10 - Essential (primary) hypertension, R51.9 - Headache, unspecified, R73.03 - Prediabetes, R74.8 - Abnormal levels of other serum enzymes, R79.89 - Other specified abnormal findings of blood chemistry, Z68.32 - Body mass index [BMI] 32.0-32.9, adult Comprehensive [place]. Panel Fast Today E66.09 - Other obesity due to excess calories, E66.811 - Obesity, class 1, G89.29 - Other chronic pain, I10 - Essential (primary) hypertension, R51.9 - Headache, unspecified, R73.03 - Prediabetes, R74.8 - Abnormal levels of other serum enzymes, R79.89 - Other specified abnormal findings of blood chemistry, Z68.32 - Body mass index [BMI] 32.0-32.9, adult Vitamin B12 Today E66.09 - Other obesity due to excess calories, E66.811 - Obesity, class 1, G89.29 - Other chronic pain, I10 - Essential (primary) hypertension, R51.9 - Headache, unspecified, R73.03 - Prediabetes, R74.8 - Abnormal levels of other serum enzymes, R79.89 - Other specified abnormal findings of blood chemistry, Z68.32 - Body mass index [BMI] 32.0-32.9, adult Hemoglobin A1c Today E66.09 - Other obesity due to excess calories, E66.811 - Obesity, class 1, G89.29 - Other chronic pain, I10 - Essential (primary) hypertension, R51.9 - Headache, unspecified, R73.03 - Prediabetes, R74.8 - Abnormal levels of other serum enzymes, R79.89 - Other specified abnormal findings of blood chemistry, Z68.32 - Body mass index [BMI] 32.0-32.9, adult Lipid Panel Today E66.09 - Other obesity due to excess calories, E66.811 - Obesity, class 1, G89.29 - Other chronic pain, I10 - Essential (primary) hypertension, R51.9 - Headache, unspecified, R73.03 - Prediabetes, R74.8 - Abnormal levels of other serum enzymes, R79.89 - Other specified abnormal findings of blood chemistry, Z68.32 - Body mass index [BMI] 32.0-32.9, adult Vitamin D 25-OH (D2 and D3) Today E66.09 - Other obesity due to excess calories, E66.811 - Obesity, class 1, G89.29 - Other chronic pain, I10 - Essential (primary) hypertension, R51.9 - Headache, unspecified, R73.03 - Prediabetes, R74.8 - Abnormal levels of other serum enzymes, R79.89 - Other specified abnormal findings of blood chemistry, Z68.32 - Body mass index [BMI] 32.0-32.9, adult Lutenizing Hormone Today E66.09 - Other obesity due to excess calories, E66.811 - Obesity, class 1, G89.29 - Other chronic pain, I10 - Essential (primary) hypertension, R51.9 - Headache, unspecified, R73.03 - Prediabetes, R74.8 - Abnormal levels of other serum enzymes, R79.89 - Other specified abnormal findings of blood chemistry, Z68.32 - Body mass index [BMI] 32.0-32.9, adult Follicle Stimulating Hormone Today E66.09 - Other obesity due to excess calories, E66.811 - Obesity, class 1, G89.29 - Other chronic pain, I10 - Essential (primary) hypertension, R51.9 - Headache, unspecified, R73.03 - Prediabetes, R74.8 - Abnormal levels of other serum enzymes, R79.89 - Other specified abnormal findings of blood chemistry, Z68.32 - Body mass index [BMI] 32.0-32.9, adult Complete Blood Count Auto Diff 5 Months E66.09 - Other obesity due to excess calories, E66.811 - Obesity, class 1, G89.29 - Other chronic pain, I10 - Essential (primary) hypertension, R51.9 - Headache, unspecified, R73.03 - Prediabetes, R74.8 - Abnormal levels of other serum enzymes, R79.89 - Other specified abnormal findings of blood chemistry, Z68.32 - Body mass index [BMI] 32.0-32.9, adult Comprehensive [place]. Panel Fast 5 Months E66.09 - Other obesity due to excess calories, E66.811 - Obesity, class 1, G89.29 - Other chronic pain, I10 - Essential (primary) hypertension, R51.9 - Headache, unspecified, R73.03 - Prediabetes, R74.8 - Abnormal levels of other serum enzymes, R79.89 - Other specified abnormal findings of blood chemistry, Z68.32 - Body mass index [BMI] 32.0-32.9, adult Lipid Panel 5 Months E66.09 - Other obesity due to excess calories, E66.811 - Obesity, class 1, G89.29 - Other chronic pain, I10 - Essential (primary) hypertension, R51.9 - Headache, unspecified, R73.03 - Prediabetes, R74.8 - A bnormal levels of other serum enzymes, R79.89 - Other specified abnormal findings of blood chemistry, Z68.32 - Body mass index [BMI] 32.0-32.9, adult TSH reflex Free T4 5 Months E66.09 - Other obesity due to excess calories, E66.811 - Obesity, class 1, G89.29 - Other chronic pain, I10 - Essential (primary) hypertension, R51.9 - Headache, unspecified, R73.03 - Prediabetes, R74.8 - Abnormal levels of other serum enzymes, R79.89 - Other specified abnormal findings of blood chemistry, Z68.32 - Body mass index [BMI] 32.0-32.9, adult Hemoglobin A1c 5 Months E66.09 - Other obesity due to excess calories, E66.811 - Obesity, class 1, G89.29 - Other chronic pain, I10 - Essential (primary) hypertension, R51.9 - Headache, unspecified, R73.03 - Prediabetes, R74.8 - Abnormal levels of other serum enzymes, R79.89 - Other specified abnormal findings of blood chemistry, Z68.32 - Body mass index [BMI] 32.0-32.9, adult Medications: Refilled losartan-hydrochlorothiazide 50-12.5 mg 1 tab PO BID 90 days 180 tabs 1RF Discontinued atenolol Discontinued Reason: Doctor's Order 25 mg PO Q24H 90 tabs 0RF
--- OUTSIDE RECORDS SUMMARY | 2024-08-23 16:26 | XMS_ITS | Data Portability ---
Author Organization [place] - [facility], Allergy Address [address] [place] [address] Care Team Providers Care Taper/Finisher Name Role Phone JACQUE MELO Primary Care Provider Assessment Encounter Date Assessment Date Assessment LastModified by Organization Details LastModified Time 05/24/2024 05/24/2024 Patient is doing well on current immunotherapy program. They are compliant with therapy. Symptoms are improving, but not yet resolved. They will continue with treatment and followup in 6 months. All questions were answered. Patient has persistent bilateral tinnitus and intermittent migraines usually associated with food triggers. Stress has been a big trigger as well. She has been battling hypertension and is presently on losartan with hydrochlorothiaz poly. BP running 145/75-90 laurachreibstein Not available 05/24/2024 14:14:26 Plan of Treatment Reminders Order Date Submit Date Provider Last Modified By Organization Details Last Modified Time Details Appointments Establish ed- Allergy f-up 6mon 2024 02:00P M SHON PRESTON MD Not available Not available Not available Lab None recorded. Referral None recorded. Procedures None recorded. Surgeries None recorded. Imaging None recorded. Medication Orders nortripty line 10 mg capsule 2024 025 [facility]/Pharmacy #[id number], [address] [place], [address], 05/24/2024 14:15:33 nortripty line 10 mg capsule 2023 024 [facility]/Pharmacy #[id number], [address] [place], [address], 10/26/2023 15:29:36 Patient TargetsNo targets recorded. Patient InstructionsNo instructions recorded. Reason for Referral None Reported. Results Created Date Observation Date Name Description Value Unit Range Abnormal Flag Note LastModifiedBy Organization Detail LastModifiedTime 10/28/19 24 audio gram No observ ation record ed. BARCODE Not Available 2023 12:46:01 Result Notes None recorded. Problems Name Problem SNOMED Code Status Onset Date Resolution Date Notes Provider Name and Address Organization Details Recorded Time Allergic rhinitis 41022074 Active 2021 Allergic Rhinitis; Note: Date Diagnosed : 3:25 PM (477.9) Note: Date Diagnosed : 3:25 PM (477.9) Other allergic rhinitis; Note: Date Diagnosed : 03/24/2022 2:33 PM (J30.89) Note: Date Diagnosed : 03/24/2022 2:33 PM (J30.89) ; Start Date : 2 Not Available [facility] 4 01:11:27 Elevated blood-pre ssure reading without diagnosis of hypertens ion 433103589 Active 2021 Elevated blood-pre ssure reading, without diagnosis of hypertens ion; Note: Date Diagnosed : 03/24/2022 2:35 PM (R03.0) Not Available [facility] 4 02:54:52 Migraine 83002144 Active 2021 Other migraine, not intractab le, without status migrainos us; Note: Date Diagnosed : 12/04/2021 11:36 AM (G43.809) Not Available [facility] 4 02:54:52 Nasal congestio n 57516624 Active 2021 Nasal congestio n; Note: Date Diagnosed : 12/04/2021 11:36 AM (R09.81) Not Available [facility] 4 02:54:52 Abnormal auditory perceptio n 20641027 Active 2021 Other abnormal auditory perceptio ns, bilateral ; Note: Date Diagnosed : 12/04/2021 11:36 AM (H93.293) Not Available [facility] 4 02:54:51 Migraine without aura 38742601 Active 2023 SHON KOROMA MD [address] [facility], [place], [place], [address] , [facility] - [facility] 4 22:42:30 Bilateral tinnitus 76802169169 02 Active 2023 SHON KOROMA MD [address] [facility] [place],[facility], [place], [place], [address] , [facility] - [facility] 4 14:50:50 Sensorine ural hearing loss of bilateral ears 368001215 Active 2023 SANTY HERNANDEZ, [facility] [address] [facility] [place],[facility], [place], [place], [address] , [facility] [place] 4 15:04:06 Essential hypertens ion 28457057 Active 2024 SHON KOROMA MD 100 [facility],[place] [address], [place], [place], [address] , [facility] 5 14:14:31 Problem Notes None recorded. Procedures Surgical History Date Name Laterality Status Provider Name and Address Organization Details Recorded Time 10/26/2023 Comp Audio with Tymps (26736 & 92435) completed DOE DOWNING [address] [facility] [place] [address], [place], [address], [facility] 10/26/2023 15:03:37 Imaging Results Imaging Date Name Status LastModified by Organiz ation Details LastModified Time 10/28/2023 audiogram completed BARCODE Information no t available 10/28/2023 12:46:01 Procedure Notes None recorded. Medical Equipment None Reported. Medications Name Sig Start Date Stop Date Status Note LastModified by Organization Details LastModified Time fluoroura cil 5 % topical cream active Not Available Not Available Not Available atenolol 25 mg tablet TAKE 1 TABLET BY MOUTH EVERY DAY 05/24 completed Not Available Not Available Not Available nortripty line 10 mg capsule Take 1 capsule every day by oral route. active Not Available Not Available No t Available epinephri ne 0.3 mg/0.3 mL injection , auto-inje ctor Inject 1 pen injector single dose as needed 2021 active Medicati on ID: [id number] D uration Value: 180 Brand Name: richard juarez Send Method: E-Prescr ibed Sub s Allowed: subs OK Medic ationGen ericName : epinephr ine Not Available Not Available Not Available losartan 50 mg-hydroc hlorothia zide 12.5 mg tablet TAKE 1 TABLET BY MOUTH EVERY DAY active Not Available Not Available No t Available fluticaso ne propionat e 50 mcg/actua tion nasal spray,jerome pension [place] 2 puff once a day 2021 active Medicati on ID: 016279 D uration Value: 30 Prescri bed By Name: Vasyl Morley nd Name: fluticas one propiona te Send Method: E-Prescr ibed Sub s Allowed: subs OK Medic ationGen ericName : fluticas one propiona te Not Available Not Available Not Available atenolol 50 mg tablet TAKE 1 TABLET BY MOUTH EVERY 24 HOURS 05/24 completed Not Available Not Available Not Available riboflavi n (vitamin B2) 400 mg tablet Take 1 tablet by mouth once a day 2021 active Medicati on ID: [id number] D uration Value: 30 Brand Name: riboflav in (vitamin B2) Send Method: E-Prescr ibed Sub s Allowed: subs OK Medic ationGen ericName : riboflav in (vitamin B2) Not Available Not Available Not Available magnesium 400 mg (as magnesium oxide) tablet Take 1 tablet by mouth once a day 2021 active Medicati on ID: [id number] D uration Value: 30 Brand Name: magnesiu m oxide Se nd Method: E-Prescr ibed Sub s Allowed: subs OK Medic ationGen ericName : magnesiu m oxide Not Available Not Available Not Available Vitals Date Recorded Body height Body mass index (BMI) Body weight Provider Name and Address Organization Details Last Updated DateTime 10/26/2023 167.64 cm 29.1 kg/m2 74505.63 g Jason Li [place] - [facility] 10/26/2023 14:32:15 Date Recorded Body height Body mass index (BMI) Body weight Provider Name and Address Organization Details Last Updated DateTime 05/24/2024 167.64 cm 31.5 kg/m2 98534.51 g Jason Li [place] - [facility] 05/24/2024 13:59:51 Social History None recorded. Functional Status None recorded. Mental Status None recorded. Family History Nothing Reported. Medical History Condition Response Allergies/Hayfever Y Migraines Y Gynecological HistoryNo gynecological history recorded. Obstetrics History GPAL:G 0 P 0 0 0 0 Past Encounters Encounter ID Performer Location Encounter Start Date Encounter Closed Date Diagnosis/Indication Diagnosis SNOMED-CT Code Diagnosis ICD10 Code Diagnosis Note [id number] SHON KOROMA MD [facility] [address] [place] [address] 10/26/2023 14:13:50 10/26/2023 15:30:33 Allergic rhinitis 23352853 J30.9 J30.89 Continue allergy drop therapy Migraine without aura 56 199487 G43.009 Continue to monitor for food triggers. Discussed trial of nortriptyl ine to reduce frequency of migraine and help with tinnitus. We will start at 10mg and can increase if needed. She will connect with me via portal in 4-6 weeks Bilateral tinnitus 55057 79433 102 H93.13 Today we discussed the pathophysi ology of tinnitus and the absence of consistent ly successful pharmacolo gic treatments for tinnitus. We discussed masking strategies to decrease awareness of the tinnitus, including using a white noise machine, music, [email or web address] tinnitus swati or television . We discussed how exposure to loud noise can worsen tinnitus so I recommende d hearing protection . We also discussed other ways to potentiall y help reduce awareness of tinnitus including avoidance of caffeine, salty meals and NSAIDs.In light of the underlying sensorineu ral hearing loss, the patient may want to consider amplificat ion. This would not only help with hearing, but can also be instrument al in acting as a masking source to help reduce the awareness of tinnitus. Sensorineu ral hearing loss of bilateral ears 577534014 H90.3 Audiologic al evaluation results:Ri ght ear:{{Norm al auditory thresholds Normal sloping at Normal sloping at 6kHz to a mild#}} {{ SNHL* C HL MHL }} with {{excellen t* good fa ir poor no t measurable }} speech discrimina tion.Left ear:{{Norm al auditory thresholds Normal sloping at Normal sloping at 4kHz to a mild#}} {{ SNHL* C HL MHL }} with {{excellen t* good fa ir poor no t measurable }} speech discrimina tion. Tympanomet ry:Right Ear:{{Type A Type As Type Ad* Type C Type C, shallow & rounded Ty pe B Type B with large volume Cou ld not maintain a hermetic seal}}Left Ear:{{Type A Type As Type Ad* Type C Type C, shallow & rounded Ty pe B Type B with large volume Cou ld not maintain a hermetic seal}} [id number] SHON KOROMA MD [facility] on [address] [place] [address] 05/24/2024 13:36:27 05/24/2024 14:19:37 Allergic rhinitis 63339180 J30.89 Continue allergy drop therapy Essential hypertension 65612980 I10 Migraine 77511767 G43.90 9 Bilateral tinnitus 25627 41045 102 H93.13 she will try the nortriptyl ine--BP likely a factor as wellConsid er acupunctur e Health Concerns Section Related Observation LastModified by Organization Detai ls LastModified Time None Recorded Concern Status LastModified by Organization Details LastModified Time None Recorded Advance Directives Directive None Recorded Payers Encounter Date Sequence Insurance Name Policy Number Policy Porras Covered Member ID Porras Member ID Guarantor Name 10/26/2023 1 [facility] October [facility] [id number] 0 [id number] [place] 05/24/2024 1 [facility] October [facility] [id number] October [place] Notes Date Note Type Note Provider Name and Address Organization Details Recorded Time 10/26/2023 text/html Overall doing we ll with allergy drops. Notes significant improvement in allergy sx but still requiring some antihistamines and nasal steroids. Migraine frequency has recently increased to 3 per month. She has been on magnesium and riboflavin. She notes migraine frequency increased due to food triggers. 2 cups coffee per day. Stress better. Notes bliateral tinnitus for several months SHON HARVEY MD 100 [facility],[place] [address], [place], [address], [facility] - [facility] 10/26/2023 15:29:46 05/24/2024 text/html Patient seen in follow-up for allergy drop immunotherapy. Therapy was initiated on {{ #}}. {{He She*}} is doing well tolerating the therapy. No adverse reactions. No need for any acute medications. Presently maintained on no meds{{antihistamines nasal steroids antihistami mary lou and nasal steroids}} She also notes that her bilateral tinnitus has been quite bothersome. She did not try the nortriptyline that we discussed in October. More stress lately. 1-2 migraine per month1 cup of coffee per day. Chocolate can trigger both the migraine and tinnitus BP control has been difficult-- SHON HARVEY MD 100 [facility] [address], [place], [address], [facility] - [facility] 05/24/2024 14:16:21 OBGyn Episode No OBEpisode recorded.
== END 2024-08-23 13:57 | disposition home or self-care (01) ==
LOC: HO.HMCC 13:30
PROVIDERS: PCP Internal Medicine; Visit Provider Internal Medicine
DX: I10 Essential (primary) hypertension (principal); E66.811 Obesity, class 1; E66.09 Other obesity due to excess calories; Z68.32 Body mass index [BMI] 32.0-32.9, adult; R79.89 Other specified abnormal findings of blood chemistry; G44.229 Chronic tension-type headache, not intractable; R73.03 Prediabetes; R74.8 Abnormal levels of other serum enzymes

== ENCOUNTER → 2024-08-23 13:30 | Outpatient (BNVA) | payer OTHER, SELFPAY | PROVIDERS: PCP Internal Medicine; Visit Provider Internal Medicine | DX: I10 Essential (primary) hypertension (principal); E66.811 Obesity, class 1; E66.09 Other obesity due to excess calories; Z68.32 Body mass index [BMI] 32.0-32.9, adult; R79.89 Other specified abnormal findings of blood chemistry; G44.229 Chronic tension-type headache, not intractable; R73.03 Prediabetes; R74.8 Abnormal levels of other serum enzymes; Z79.899 Other long term (current) drug therapy | CPT/HCPCS: 96127 ==

== ENCOUNTER 2024-09-15 06:39 | Outpatient (REF) | payer OTHER, SELFPAY ==
--- OUTSIDE RECORDS SUMMARY | 2024-09-15 06:42 | XMS_ITS | Data Portability ---
Author Organization [place] - [facility], Allergy Address [address] [place] [address] Care Team Providers Care Cardiac Exercise Physiologist Name Role Phone JACQUE MELO Primary Care [...] losartan with hydrochlorothiaz poly. BP running 145/75-90 [email or web address] Not available 05/24/2024 14:14:26 Plan of Treatment [...] nortripty line 10 mg capsule 2024 025 [facility]/Pharmacy #[id number], [address] [place], [address], 05/24/2024 14:15:33 nortripty line 10 mg capsule 2023 024 [facility]/Pharmacy #[id number], [address] [place], [address], 10/26/2023 15:29:36 Patient TargetsNo targets recorded. Patient [...] Address Organization Details Recorded Time Allergic rhinitis 92870051 Active 2021 Allergic Rhinitis; Note: Date Diagnosed : 3:25 PM (477.9) Note: Date Diagnosed : 3:25 PM (477.9) Other allergic rhinitis; Note: Date Diagnosed : 03/24/2022 2:33 PM (J30.89) Note: Date Diagnosed : 03/24/2022 2:33 PM (J30.89) ; Start Date : 2 Not Available [facility] 4 01:11:27 Elevated blood-pre ssure reading without diagnosis of hypertens ion 396822070 Active 2021 Elevated blood-pre ssure reading, without diagnosis of hypertens ion; Note: Date Diagnosed : 03/24/2022 2:35 PM (R03.0) Not Available [facility] 4 02:54:52 Migraine 26870384 Active 2021 Other migraine, not intractab le, without status migrainos us; Note: Date Diagnosed : 12/04/2021 11:36 AM (G43.809) Not Available [facility] 4 02:54:52 Nasal congestio n 50035743 Active 2021 Nasal congestio n; Note: Date Diagnosed : 12/04/2021 11:36 AM (R09.81) Not Available [facility] 4 02:54:52 Abnormal auditory perceptio n 81151871 Active 2021 Other abnormal auditory perceptio ns, bilateral ; Note: Date Diagnosed : 12/04/2021 11:36 AM (H93.293) Not Available [facility] 4 02:54:51 Migraine without aura 72587902 Active 2023 SHON KOROMA MD [address] [facility] [place], [place], [place], [address] , [facility] - [facility] 4 22:42:30 Bilateral tinnitus 86318511126 02 Active 2023 SHON KOROMA MD [address] [facility] [place],[facility] [address], [place], [place], [address] , [facility] - [facility] 4 14:50:50 Sensorine ural hearing loss of bilateral ears 267546091 Active 2023 SANTY HERNANDEZ, [facility] [address] [facility] [place],[facility] [address], [place], [place], [address] , [facility] [place] 4 15:04:06 Essential hypertens ion 53196210 Active 2024 SHON KOROMA MD 100 [facility],[place] [address], [place], [place], [address] , [facility] 5 14:14:31 Problem Notes None recorded. Procedures Surgical History Date Name Laterality Status Provider Name and Address Organization Details Recorded Time 10/26/2023 Comp Audio with Tymps (42410 & 66526) completed DOE DOWNING [address] [facility] [place] [address], [place], [address], [facility] 10/26/2023 15:03:37 Imaging Results Imaging Date [...] as needed 2021 active Medicati on ID: 949900 D uration Value: 180 Brand Name: richard juarez Send Method: E-Prescr ibed Sub s Allowed: subs OK Medic ationGen ericName : epinephr ine Not Available Not Available Not Available losartan 50 mg-hydroc hlorothia zide 12.5 mg tablet TAKE 1 TABLET BY MOUTH EVERY DAY active Not Available Not Available No t Available fluticaso ne propionat e 50 mcg/actua tion nasal spray,jerome pension [place] 2 puff once a day 2021 active Medicati on ID: 463112 D uration Value: 30 Prescri bed By [...] a day 2021 active Medicati on ID: 164096 D uration Value: 30 Brand Name: riboflav in (vitamin B2) Send Method: E-Prescr ibed Sub s Allowed: subs OK Medic ationGen ericName : riboflav in (vitamin B2) Not Available Not Available Not Available magnesium 400 mg (as magnesium oxide) tablet Take 1 tablet by mouth once a day 2021 active Medicati on ID: 375639 D uration Value: 30 Brand Name: magnesiu m oxide Se nd Method: E-Prescr ibed Sub s Allowed: subs OK Medic ationGen ericName : magnesiu m oxide Not Available Not Available Not Available Vitals Date Recorded Body height Body mass index (BMI) Body weight Provider Name and Address Organization Details Last Updated DateTime 10/26/2023 167.64 cm 29.1 kg/m2 60454.63 g Jason Li [place] - [facility] 10/26/2023 14:32:15 Date Recorded Body height Body mass index (BMI) Body weight Provider Name and Address Organization Details Last Updated DateTime 05/24/2024 167.64 cm 31.5 kg/m2 09595.51 g Jason Li [place] - [facility] 05/24/2024 13:59:51 Social History None recorded. [...] Note [id number] SHON KOROMA MD [facility] [address] [place] [address] 10/26/2023 14:13:50 10/26/2023 15:30:33 Allergic rhinitis 95558444 J30.9 J30.89 Continue allergy drop therapy Migraine without aura 56 137881 G43.009 Continue to monitor for food triggers. Discussed trial of nortriptyl ine to reduce frequency of migraine and help with tinnitus. We will start at 10mg and can increase if needed. She will connect with me via portal in 4-6 weeks Bilateral tinnitus 49272 45755 102 H93.13 Today we discussed the pathophysi ology of tinnitus and the absence of consistent ly successful pharmacolo gic treatments for tinnitus. We discussed masking strategies to decrease awareness of the tinnitus, including using a white noise machine, music, [employer]oyoo tinnitus swati or television . We discussed [...] Sensorineu ral hearing loss of bilateral ears 767779055 H90.3 Audiologic al evaluation results:Ri ght ear:{{Norm [...] Cou ld not maintain a hermetic seal}} [id number] SHON KOROMA MD [facility] on [address] [place] [address] 05/24/2024 13:36:27 05/24/2024 14:19:37 Allergic rhinitis 09559736 J30.89 Continue allergy drop therapy Essential hypertension 33844277 I10 Migraine 82444621 G43.90 9 Bilateral tinnitus 71904 68215 102 H93.13 she will try the nortriptyl [...] Porras Member ID Guarantor Name 10/26/2023 1 [facility] October [facility] [id number] October [place] 05/24/2024 1 [facility] October [facility] [id number] October [place] Notes Date Note Type Note Provider Name [...] for several months SHON HARVEY MD 100 [facility],[place] [address], [place], [address], [facility] - [facility] 10/26/2023 15:29:46 05/24/2024 text/html Patient seen [...] has been difficult-- SHON HARVEY MD 100 [facility], [place], [address], [facility] - [facility] 05/24/2024 14:16:21 OBGyn Episode No OBEpisode recorded.
[2024-09-15 10:08] LABS: MANUAL DIFF FLAG NO
[2024-09-15 10:14] LABS: Basophils Percent Auto 0.9 % (0-2); Eosinophils Absolute Auto 0.1 X10*3/uL (0.0-0.4); Eosinophils Percent Auto 2.2 % (0-4); Hematocrit 44.2 % (37.0-47.0); Hemoglobin 15.2 g/dl (12.0-16.0); Imm Gran Abs Auto 0.03 X10*3/uL (0.00-0.03); Imm Gran Pct Auto 0.7 % (0.0-0.4); Lymphocytes Absolute Auto 1.9 X10*3/uL (1.2-4.9); Lymphocytes Percent Auto 41.7 % (20-40); Mean Corpuscular HGB Conc 34.4 g/dl (31.0-35.0); Mean Corpuscular Hemoglobin 31.1 pg (27.0-33.0); Mean Corpuscular Volume 90.4 fL (80.0-98.0); Mean Platelet Volume 10.5 fL (9.4-12.3); Monocytes Absolute Auto 0.4 X10*3/uL (0.1-1.2); Monocytes Percent Auto 9.5 % (2-11); Platelet Count 189 X10*3/uL (160-400); Red Blood Count 4.89 X10*6/uL (4.20-5.50); White Blood Count 4.5 X10*3/uL (4.8-10.8)
[2024-09-15 10:29] LABS: Alanine Aminotransferase 50 U/L (0-31); Albumin Level 4.1 g/dL (3.5-5.0); Alkaline Phosphatase 67 U/L (39-117); Anion Gap 11 (12-20); Aspartate Amino Transferase 39 U/L (5-31); Bilirubin Total 0.9 mg/dL (0.0-1.0); Blood Urea Nitrogen 21 mg/dL (9-16); Calcium 9.6 mg/dL (8.4-10.2); Carbon Dioxide 28 mmol/L (22-29); Chloride 105 mmol/L (96-108); Cholesterol 203 mg/dL (<200); Estimated Glomerular Filt Rate > 60; Glucose Fasting 116 mg/dL (60-99); HDL Cholesterol 69 mg/dL (>40); LDL Cholesterol Calculated 119 mg/dL (<100); Potassium 3.6 mmol/L (3.3-5.1); Sodium 140 mmol/L (135-145); Total Protein 7.3 g/dL (6.5-8.0); Triglycerides 79 mg/dL (<150)
[2024-09-15 10:37] LABS: Estimated Average Glucose 111 mg/dL; Hemoglobin A1C 147.3727 umol/L; Hemoglobin A1c % 5.5 % (<6.0)
[2024-09-15 11:00] LABS: Vitamin B12 515 pg/mL (200-900)
[2024-09-16 11:28] LABS: Follicle Stimulating Hormone 104.2 mIU/mL
[2024-09-19 15:08] LABS: Vitamin D 25-OH, D2 <4 ng/mL; Vitamin D 25-OH, D3 37 ng/mL; Vitamin D 25-OH, Total 37 ng/mL (30-100)
== END 2024-09-15 06:40 | disposition home or self-care (01) ==
LOC: HO.HMGCLDS 06:39
PROVIDERS: PCP Internal Medicine; Visit Provider Internal Medicine
DX: I10 Essential (primary) hypertension (principal); R79.89 Other specified abnormal findings of blood chemistry; E66.811 Obesity, class 1; E66.09 Other obesity due to excess calories; Z68.32 Body mass index [BMI] 32.0-32.9, adult; R51.9 Headache, unspecified; G89.29 Other chronic pain; R73.03 Prediabetes; R74.8 Abnormal levels of other serum enzymes
CPT/HCPCS: 36415; 80053; 80061; 82306; 82607; 83001; 83002; 83036; 85025

== ENCOUNTER 2024-12-12 10:41 | Outpatient (REF) | payer OTHER, SELFPAY ==
--- NOTE | ~2024-12-12 | XR_ITS ---
EXAMINATION: XR FOOT, LEFT CLINICAL INFORMATION: M79.672 - Pain in left foot COMPARISON: None available. TECHNIQUE: AP, lateral, and oblique views of the left foot. FINDINGS: There is persistent hallux valgus deformity post well-healed bunionectomy. Degenerative cystic changes are present in the first metatarsal head. There are small marginal osteophytes involving the first MTP joint. There are osteophytes involving articulation of the lateral sesamoid and first metatarsal head. The medial sesamoid is not visualized and probably has been resected. There are small calcaneal osteophytes. XR/XR foot LT min 3V IMPRESSION: There is hallux valgus deformity status post bunionectomy. There are mild degenerative changes of the first MTP joint and dilatation of the first metatarsal head lateral sesamoid. Electronically signed by: Jos Oconnell MD 12/12/2024 01:38 PM EDT
== END 2024-12-12 10:42 | disposition home or self-care (01) ==
LOC: HO.HMGCX 10:41
PROVIDERS: PCP Internal Medicine; Visit Provider Nurse Practitioner Family
DX: M79.672 Pain in left foot (principal)
CPT/HCPCS: 73630

== ENCOUNTER 2024-12-12 10:41 | Outpatient (AMB) | payer OTHER, SELFPAY ==
[2024-12-12 11:45] VITALS: BP 122/60; PULSE 63; TEMP 36.6; O2SAT 98; BMI 33.2
--- NOTE | 2024-12-12 11:45 | MHC.OFFWIV ---
Intake Vital Signs 12/12/24 11:45 Height 5 ft 6 in Weight 206 lb BMI 33.2 BP 122/60 Blood Pressure Location Rt brachial Position Sitting Pulse 63 Pulse Source Pulse Oximeter Temp 97.9 F Temp Source Oral Pulse Oximetry (%) 98 Oxygen Delivery Method Room Air Intake Visit Reasons: EP pain & swollen LT foot Intake Note: presents with tight feeling, pins & needles, pain and swelling to the ball of her LT foot Patient Tobacco Use Status: Never used Tobacco Allergies No Known Allergies (No Known Allergies*) Allergy (Verified 12/12/24 11:53) Do you need a note to return to daycare/school/sports/work: No HPI HPI Comments History of Present Illness Details 59 y/o Female patient who presents to the walk in clinic with c/o Left Foot Pain. Reports that Pain is located at the Plantar aspect. She did have Hummer Toe Surgery left foot - there is well healed surgical Scar. Reports Pain worse with standing and walking. [facility] Medical History (Updated 12/12/24 @ 12:24 by Alize Multani NP) Foot pain, left Exposure to COVID-19 virus Surgical History No pertinent past surgical history Family History Other Substance use disorder Social History Housing: House Patient Tobacco Use Status: Never used Tobacco e-Cigarette/Vaping Use: Never Used Second Hand Smoke Exposure: Yes (as a child) Advance Directives Date on File: 01/07/24 service: No Current occupational status: employed Cognitive needs: No Hearing needs: No Vision needs: No Physical Exam Vital Signs: Last Vital Signs Temp 97.9 F 12/12/24 11:45 Pulse 63 12/12/24 11:45 BP 122/60 12/12/24 11:45 Pulse Ox 98 12/12/24 11:45 Oxygen Delivery Method Room Air 12/12/24 11:45 BMI result Body Mass Index 33.2 Const General: no acute distress Orientation/consciousness: patient oriented x3 Neuro General: patient oriented x3, gait normal and moves all extremities Extrem Left lower extremity: foot Details: normal capillary refill, tenderness Location: of the plantar foot Location: proximally and toes with normal ROM; no crepitus Ankle/foot/toe images:  1. TTP, normal skin color, Old surgical Scar Big Toe Psych Speech and movement: Normal speech and movement present Assessment & Plan Assessment & Plan (1) Foot pain, left: Code(s): M79.672 - Pain in left foot Plan: Ordered Xray Foot - per Pt's request. Acetaminophen and Ibuprofen for pain relief. Rest Orders: Orders XR foot LT min 3V Today M79.672 - Pain in left foot Coding Level of Care Code Est Pt Level 4 (67608) Diagnoses Foot pain, left M79.672 Time Spent (min) 20
--- OUTSIDE RECORDS SUMMARY | 2024-12-12 11:54 | XMS_ITS | Data Portability ---
Author Organization [place] - [facility], Allergy Address [address] [address] Care Team Providers Care Instructional Paraprofessional Name Role Phone JACQUE MELO Primary Care [...] running 145/75-90 [email or web address] Not available 05/24/2024 14:14:26 11/02/2024 11/02/2024 Patient is doing well on current immunotherapy program. They are compliant with therapy. Symptoms are improving, but not yet resolved. They will continue with treatment and followup in 6 months. All questions were answered. [email or web address] Not available 11/02/2024 14:17:57 Plan of Treatment Reminders Order Date Submit Date Provider Last Modified By Organization Details Last Modified Time Details Appointments Establish ed- Allergy f-up 6mon 2024 02:00P M SHON PRESTON MD Not available Not available Not available Lab None recorded. Referral None recorded. Procedures None recorded. Surgeries None recorded. Imaging None recorded. Medication Orders nortripty line 10 mg capsule 2024 025 [facility]/Pharmacy #[id number], [address] [facility] [place], [address], 05/24/2024 14:15:33 nortripty line 10 mg capsule 2023 024 [facility]/Pharmacy #[id number], [address] [facility] [place], [address], 10/26/2023 15:29:36 Patient TargetsNo targets recorded. Patient InstructionsNo instructions recorded. Reason for Referral None Reported. Results Created Date Observation Date Name Description Value Unit Range Abnormal Flag Note LastModifiedBy Organization Detail LastModifiedTime 10/28/19 24 audio gram No observ ation record ed. BARCODE Not Available 2023 12:46:01 11/03/19 25 audio gram No observ ation record ed. BARCODE Not Available 2024 15:37:29 Result Notes None recorded. Problems Name Problem SNOMED Code Status Onset Date Resolution Date Notes Provider Name and Address Organization Details Recorded Time Migraine 49862904 Active 2021 Other migraine, not intractab le, without status migrainos us; Note: Date Diagnosed : 12/04/2021 11:36 AM (G43.809) Not Available [facility] 4 02:54:52 Nasal congestio n 95036088 Active 2021 Nasal congestio n; Note: Date Diagnosed : 12/04/2021 11:36 AM (R09.81) Not Available [facility] 4 02:54:52 Abnormal auditory perceptio n 39017334 Active 2021 Other abnormal auditory perceptio ns, bilateral ; Note: Date Diagnosed : 12/04/2021 11:36 AM (H93.293) Not Available [facility] 4 02:54:51 Elevated blood-pre ssure reading without diagnosis of hypertens ion 174633844 Active 2021 Elevated blood-pre ssure reading, without diagnosis of hypertens ion; Note: Date Diagnosed : 03/24/2022 2:35 PM (R03.0) Not Available [facility] 4 02:54:52 Allergic rhinitis 07976644 Active 2021 Allergic Rhinitis; Note: Date Diagnosed : 2 3:25 PM (477.9) Note: Date Diagnosed : 2 3:25 PM (477.9) Other allergic rhinitis; Note: Date Diagnosed : 03/24/2022 2:33 PM (J30.89) Note: Date Diagnosed : 03/24/2022 2:33 PM (J30.89) ; Start Date : 2 Not Available [facility] 4 01:11:27 Migraine without aura 02662492 Active 2023 SHON KOROMA MD [address], [place], [address] , [place] [facility] 4 22:42:30 Bilateral tinnitus 48310397616 02 Active 2023 SHON KOROMA MD [address], [place], [address] , [place] [facility] [place] 4 14:50:50 Sensorine ural hearing loss of bilateral ears 963597024 Active 2023 DOE DOWNING [address] [facility], [place], [address] , [place] [facility] [place] 4 15:04:06 Essential hypertens ion 73706776 Active 2024 SHON KOROMA MD [address] [facility], [place], [address] , [place] [facility] 5 14:14:31 Problem Notes None recorded. Procedures Surgical History Date Name Laterality Status Provider Name and Address Organization Details Recorded Time 11/02/2024 Air & Speech Audio with Tymps - 20701, 29031 & 73722 completed DOE DOWNING [address],[place] [facility], [place], [address], [facility] - [facility] [place] 11/02/2024 14:46:50 10/26/2023 Comp Audio with Tymps - 03279 & 55218 completed DOE DOWNING [address],[place] [facility], [place], [address], [place] [facility] 10/26/2023 15:03:37 Imaging Results None recorded. Procedure Notes None recorded. Medical Equipment None Reported. Allergies No known drug allergies Medications Name Sig Start Date Stop Date Status Note LastModified by Organization Details LastModified Time fluoroura cil 5 % topical cream 11/02 completed Not Available Not Available Not Available atenolol 25 mg tablet TAKE 1 TABLET BY MOUTH EVERY DAY active Not Available Not Available No t Available nortripty line 10 mg capsule TAKE 1 CAPSULE BY MOUTH EVERY DAY active Not Available Not Available No t Available epinephri ne 0.3 mg/0.3 mL injection , auto-inje ctor Inject 1 pen injector single dose as needed 11/02 completed Medicati on ID: [id number] D uration Value: 180 Brand Name: richard juarez Send Method: E-Prescr ibed Sub s Allowed: subs OK Medic ationGen ericName : epinephr ine Not Available Not Available Not Available losartan 50 mg-hydroc hlorothia zide 12.5 mg tablet TAKE 1 TABLET BY MOUTH TWICE A DAY active Not Available Not Available No t Available fluticaso ne propionat e 50 mcg/actua tion nasal spray,jerome pension [place] 2 puff once a day 2021 active Medicati on ID: [id number] D uration Value: 30 Prescri bed By [...] 1 tablet by mouth once a day 11/02 completed Medicati on ID: [id number] D uration Value: 30 Brand Name: riboflav in (vitamin B2) Send Method: E-Prescr ibed Sub s Allowed: subs OK Medic ationGen ericName : riboflav in (vitamin B2) Not Available Not Available Not Available magnesium 400 mg (as magnesium oxide) tablet Take 1 tablet by mouth once a day 11/02 completed Medicati on ID: [id number] D uration Value: 30 Brand Name: mehreen galloway Se nd Method: E-Prescr ibed Sub s Allowed: subs OK Medic Christina ericName : mehreen galloway Not Available Not Available Not Available Vitals Date Recorded Body height Body mass index (BMI) Body weight Provider Name and Address Organization Details Last Updated DateTime 05/24/2024 167.64 cm 31.5 kg/m2 59764.51 g [facility] 05/24/2024 13:59:51 Date Recorded Body height Body mass index (BMI) Body weight Provider Name and Address Organization Details Last Updated DateTime 10/26/2023 167.64 cm 29.1 kg/m2 53677.63 g [facility] 10/26/2023 14:32:15 Social History None recorded. Functional Status None recorded. Mental Status None recorded. Family History Nothing Reported. Medical History Condition Response Allergies/Hayfever Y Migraines Y Hypertension Y Gynecological HistoryNo gynecological history recorded. Obstetrics History GPAL:G 0 P 0 0 0 0 Past Encounters Encounter ID Performer Location Encounter Start Date Encounter Closed Date Diagnosis/Indication Diagnosis SNOMED-CT Code Diagnosis ICD10 Code Diagnosis Note [id number] SHON KOROMA MD [facility] [address] [address] 10/26/2023 14:13:50 10/26/2023 15:30:33 Allergic rhinitis 84407508 J30.9 J30.89 Continue allergy drop therapy Migraine without aura 56 131521 G43.009 Continue to monitor for food triggers. Discussed trial of nortriptyl ine to reduce frequency of migraine and help with tinnitus. We will start at 10mg and can increase if needed. She will connect with me via portal in 4-6 weeks Bilateral tinnitus 18653 69750 102 H93.13 Today we discussed the pathophysi ology of tinnitus and the absence of consistent ly successful pharmacolo gic treatments for tinnitus. We discussed masking strategies to decrease awareness of the tinnitus, including using a white noise machine, music, [employer] tinnitus swati or television . We discussed [...] Sensorineu ral hearing loss of bilateral ears 247940849 H90.3 Audiologic al evaluation results:Ri ght ear:Normal sloping at 6kHz to a mild SNHL with excellent speech discrimina tion.Left ear:Normal sloping at 4kHz to a mild SNHL with excellent speech discrimina tion. Tympanomet ry:Right Ear:Type AdLeft Ear:Type Ad [id number] SHON KOROMA MD [facility] [address] [place] [place] [address] 05/24/2024 13:36:27 05/24/2024 14:19:37 Allergic rhinitis 16212646 J30.89 Continue allergy drop therapy Essential hypertension 24415607 I10 Migraine 61375073 G43.90 9 Bilateral tinnitus 22430 69934 102 H93.13 she will try the nortriptyl ine--BP likely a [place] [id number] SHON KOROMA MD [facility] [address] [place] [address] 11/02/2024 13:46:26 11/02/2024 15:23:55 Allergic rhinitis 72762557 J30.89 Continue allergy drop therapy Bilateral tinnitus 32781 37606 102 H93.13 Increase nortriptyl ine to 20 mg at [facility] acupunctur e Audiologic al evaluation results: Normal sloping to mild sensorineu ral hearing loss with excellent word recognitio n, bilaterall y. Tympanomet ry: Right Ear:Type A Left Ear:Type A Migraine 20919216 G43.90 9 Continue magnesium at 400 mg daily, encouraged her to take B2 up to 400 mg daily and hopefully the additional nortriptyl ine will help. She will continue with dietary modificati ons. Health Concerns Section Related Observation LastModified by Organization Detai ls LastModified Time None Recorded Concern Status LastModified by Organization Details LastModified Time None Recorded Advance Directives Directive None Recorded Payers Insurance Date Sequence Insurance Name Policy Number Policy Porras Covered Member ID Porras Member ID Guarantor Name 11/02/2024 1 [facility] October [place] [id number] October OBGyn Episode No OBEpisode recorded.
== END 2024-12-12 12:45 | disposition home or self-care (01) ==
PROVIDERS: PCP Internal Medicine; Visit Provider Nurse Practitioner Family
DX: M79.672 Pain in left foot (principal)

== ENCOUNTER → 2024-12-12 13:17 | Outpatient (BNV) | payer OTHER, SELFPAY | PROVIDERS: PCP Internal Medicine; Visit Provider Radiology Diagnostic Radiology | DX: M19.072 Primary osteoarthritis, left ankle and foot (principal) | CPT/HCPCS: 73630 ==

== ENCOUNTER 2025-01-25 13:48 | Outpatient (AMB) | payer OTHER, SELFPAY ==
--- NOTE | 2025-01-25 13:57 | MHC.PC.OV ---
Vital Signs 01/25/25 13:58 Height 5 ft 6 in Weight 185 lb BMI 29.9 BP 132/74 Blood Pressure Location Lt brachial Pulse 86 Pulse Source Pulse Oximeter Pulse Oximetry (%) 96 Intake Visit Reasons: PE Allergies No Known Allergies (No Known Allergies*) Allergy (Verified 01/25/25 13:58) Medication List - Last Reconciled 01/25/25 by Bert Hernandez MD losartan-hydrochlorothiazide 50-12.5 mg 1 tab PO BID 90 days Tobacco use date assessed: 05/20/24 Dental Screening Dental Screen Date: 05/20/24 HPI PE HPI Details Physical exam appointment The patient is a 59 year old female presenting with a follow-up for hypertension management and discussion of weight management and neuropathy symptoms. Essential Hypertension: - Patient reports good blood pressure readings, consistently in the 130s/70s. - Current reading at the clinic is 132/74 mmHg. - Patient is on losartan hydrochlorothiazide for management. Neuropathy Symptoms: - The patient reports intermittent numbness and pins and needles sensation in the toes, worsened by prolonged standing or inappropriate footwear. - Symptoms are not reported to be worsening but are associated with previous bunion surgery. Elevated Liver Enzymes: - Previous labs in September showed elevated liver enzymes which have improved. - Patient has implemented dietary changes and plans to repeat labs. Medical History: - Essential Hypertension - Elevated Liver Enzymes - Granuloma Annulare - weak bladder Social History: - Engaged in dietary changes to promote health alongside her diabetic , focusing on proteins and vegetables while minimizing carbohydrates and processed foods. - Newly initiated exercise routine following the joining of a gym. - Reduced alcohol consumption as part of a weight loss and health improvement effort. Health Maintenance - Due for tetanus vaccine, last administered in 2013. - Patient is considering influenza vaccination. - Repeated lab work advised due to historical elevation in liver enzymes, following dietary changes. - OBGYN at [facility], mammogram through them Patient Instructions - Continue dietary changes with a focus on proteins and vegetables, minimizing processed foods and carbohydrates. - Begin pelvic floor exercises to help with urinary control. - Monitor for neuropathy symptoms; ensure adequate B12 levels and continue to manage alcohol consumption. - Use appropriate footwear to prevent nerve pressure. - Receive tetanus and possibly influenza vaccines at the pharmacy. Follow-up six-month for high blood pressure, and 1 year physical exam Review of Systems - General: No fever no chills - Neurological: No headaches no dizziness - Ear nose throat: No sore throat no hearing difficulty no ear pain - Cardiovascular: No syncope, no chest pain, no palpitations - Gastrointestinal: No nausea vomiting or diarrhea - Endocrine: No polyuria polydipsia no heat intolerance - Genitourinary: No dysuria - Skin: No new complaints Physical Exam General: Cooperative, healthy appearing, comfortable, no acute distress Orientation: Patient oriented x3 Head: Normal to inspection Ears: Within normal limit visually Nose: Normal external nose present Face and sinus: Normal facial exam Eyes: Appearance normal, extraocular movement intact pupils reactive Neck: Normal visual inspection and supple Respiratory: Normal respiratory effort and able to speak in complete sentences. Clear to auscultation, no stridor Cardiovascular: S1 and S2 RRR, Blood pressure 132/74 Breast exam through OBGYN GI: Normal to inspection. Soft to palpation and nontender Skin: Turgor normal, no acute findings, history of precancerous lesion removed, granuloma annulare monitored regularly Neuro: Patient oriented x3, motor sensory intact, balance intact, tandem pass, Extremities: Normal to inspection, range of motion intact PENDING SALE TO [facility] Medical History Foot pain, left Exposure to COVID-19 virus Surgical History No pertinent past surgical history Family History Other Substance use disorder Social History Housing: House Patient Tobacco Use Status: Never used Tobacco e-Cigarette/Vaping Use: Never Used Second Hand Smoke Exposure: Yes (as a child) Advance Directives Date on File: 01/07/24 service: No Current occupational status: employed Cognitive needs: No Hearing needs: No Vision needs: No Questionnaire Thrive Questionnaire Date Thrive assessed: 05/20/24 I am a: Patient What is your living situation today?: I have a steady place to live Within the past 12 months, did the food you bought not last and you didn't have the money to get more?: Never true Within the past 12 months, did you worry whether your food would run out before you got money to buy more?: Never true Do you have trouble paying for medicines?: No Do you have trouble getting transportation to medical appointments?: No Do you have trouble paying your heating and electricity bill?: No Do you have trouble taking care of your child, family member or friend?: No Do you have trouble with day-to-day activities such as bathing, preparing meals, shopping, managing finances, etc.?: No Are you currently unemployed and looking for a job?: No Are you interested in more education?: No Please select the resources that you would like help with: None Currently or been in a relationship where the following occur: No concerns reported THRIVE Score: 0 LENA-7 AMB Questionnaire LENA-7 Date LENA - 7 assessed: 05/20/24 Source: Developed by Drs. Jass Arango, Natalya Barone, Oswaldo Augustin and colleagues, with an educational lorena from [employer]. Physical exam (Primary Care) Vital Signs: Last Vital Signs Pulse 86 01/25/25 13:58 BP 132/74 01/25/25 13:58 Pulse Ox 96 01/25/25 13:58 BMI result Body Mass Index 29.9 Tobacco/Smoking Status: Tobacco use Status Tobacco use date assessed 05/20/24 01/25/25 13:59 Patient Tobacco Use Status Never used Tobacco 01/25/25 13:59 e-Cigarette/Vaping Use Never Used 01/25/25 13:59 Thrive Assessment: Date of Thrive Assessment Date Thrive assessed 05/20/24 01/25/25 13:59 Currently or been in a relationship where the following occur: No concerns reported Coding Level of Care Code Est Pt Level 3 (66933) Est Pt Prev Care 40-64y(04923) Diagnoses Encounter for general adult medical examination with abnormal findings Z00.01 LFT elevation R79.89 Prediabetes R73.03 Hypertension, essential I10 Assessment & Plan Assessment & Plan (1) Encounter for general adult medical examination with abnormal findings: Code(s): Z00.01 - Encounter for general adult medical examination with abnormal findings Category: Medical (2) LFT elevation: Code(s): R79.89 - Other specified abnormal findings of blood chemistry Category: Medical (3) Prediabetes: Code(s): R73.03 - Prediabetes Category: Medical (4) Hypertension, essential: Code(s): I10 - Essential (primary) hypertension Category: Medical Plan Physical exam appointment The patient is a 59 year old female presenting with a follow-up for hypertension management and discussion of weight management and neuropathy symptoms. Essential Hypertension: - Patient reports good blood pressure readings, consistently in the 130s/70s. - Current reading at the clinic is 132/74 mmHg. - Patient is on losartan hydrochlorothiazide for management. Neuropathy Symptoms: - The patient reports intermittent numbness and pins and needles sensation in the toes, worsened by prolonged standing or inappropriate footwear. - Symptoms are not reported to be worsening but are associated with previous bunion surgery. Elevated Liver Enzymes: - Previous labs in September showed elevated liver enzymes which have improved. - Patient has implemented dietary changes and plans to repeat labs. Medical History: - Essential Hypertension - Elevated Liver Enzymes - Granuloma Annulare - weak bladder Social History: - Engaged in dietary changes to promote health alongside her diabetic , focusing on proteins and vegetables while minimizing carbohydrates and processed foods. - Newly initiated exercise routine following the joining of a gym. - Reduced alcohol consumption as part of a weight loss and health improvement effort. Health Maintenance - Due for tetanus vaccine, last administered in 2013. - Patient is considering influenza vaccination. - Repeated lab work advised due to historical elevation in liver enzymes, following dietary changes. - OBGYN at [facility], mammogram through them Patient Instructions - Continue dietary changes with a focus on proteins and vegetables, minimizing processed foods and carbohydrates. - Begin pelvic floor exercises to help with urinary control. - Monitor for neuropathy symptoms; ensure adequate B12 levels and continue to manage alcohol consumption. - Use appropriate footwear to prevent nerve pressure. - Receive tetanus and possibly influenza vaccines at the pharmacy. Follow-up six-month for high blood pressure, and 1 year physical exam Orders: Orders Vitamin D 25-OH (D2 and D3) 6 Months I10 - Essential (primary) hypertension, R73.03 - Prediabetes, R79.89 - Other specified abnormal findings of blood chemistry, Z00.01 - Encounter for general adult medical examination with abnormal findings Complete Blood Count Auto Diff 6 Months I10 - Essential (primary) hypertension, R73.03 - Prediabetes, R79.89 - Other specified abnormal findings of blood chemistry, Z00.01 - Encounter for general adult medical examination with abnormal findings Comprehensive [place]. Panel Fast 6 Months I10 - Essential (primary) hypertension, R73.03 - Prediabetes, R79.89 - Other specified abnormal findings of blood chemistry, Z00.01 - Encounter for general adult medical examination with abnormal findings Lipid Panel 6 Months I10 - Essential (primary) hypertension, R73.03 - Prediabetes, R79.89 - Other specified abnormal findings of blood chemistry, Z00.01 - Encounter for general adult medical examination with abnormal findings Vitamin B12 6 Months I10 - Essential (primary) hypertension, R73.03 - Prediabetes, R79.89 - Other specified abnormal findings of blood chemistry, Z00.01 - Encounter for general adult medical examination with abnormal findings TSH reflex Free T4 6 Months I10 - Essential (primary) hypertension, R73.03 - Prediabetes, R79.89 - Other specified abnormal findings of blood chemistry, Z00.01 - Encounter for general adult medical examination with abnormal findings
[2025-01-25 13:58] VITALS: BP 132/74; PULSE 86; O2SAT 96; BMI 29.9
== END 2025-01-25 14:22 | disposition home or self-care (01) ==
LOC: HO.HMCC 13:49
PROVIDERS: PCP Internal Medicine; Visit Provider Internal Medicine
DX: Z00.01 Encounter for general adult medical examination with abnormal findings (principal); R79.89 Other specified abnormal findings of blood chemistry; R73.03 Prediabetes; I10 Essential (primary) hypertension